=== PATIENT | male | born 1940 | race Caucasian/White ===

== ENCOUNTER → 2016-10-07 | Outpatient (CLI) | payer MEDICARE, BC ==
[~2016-10-07] MED LIST: AMLO10TA62 PO; ASPI-730 PO; CITA-50 PO; CYAN10009 PO; LORA10TA7 PO; MINO2.5T2 PO; NITR0.4T38 SL; PANT40TA32 PO; QUET50TA7 PO; SOTA80TA20 PO; [UNRECOGNIZED DRUG - OTHER] PO
--- NOTE | 2016-10-07 13:43 | DI ---
INDICATION: ITS.REASON: R05 COUGH PROCEDURE: CHEST 2-VIEWS UPRIGHT (PA \T\ LAT) Encounter: Initial Comparison: July 14, 2016 Findings: The lungs are stable in appearance without new focal airspace consolidation. Linear platelike atelectasis in the left lower lobe. There is no pleural effusion or pneumothorax. The heart size, pulmonary vascularity and mediastinal contours are unchanged. Prior CABG. Left pacemaker. Old right posterior rib fractures. Surgical clips in the neck. IMPRESSION: Stable appearance of the chest without acute cardiopulmonary disease. .
== END ==
LOC: IMA 13:01
PROVIDERS: ATTEND Nurse Practitioner Family
DX: R05 Cough (principal); Z95.0 Presence of cardiac pacemaker; Z95.1 Presence of aortocoronary bypass graft; Z98.890 Other specified postprocedural states

== ENCOUNTER → 2016-10-08 | Outpatient (CLI) | payer MEDICARE, BC ==
[~2016-10-08] VITALS: Ht 177.8 cm; Wt 109.0 kg
[~2016-10-08] MED LIST changes: +INHALER ASSIST DEVICE (Optichamber) MC ONE
== END ==
LOC: RC 12:42
PROVIDERS: ATTEND Nurse Practitioner Family
DX: J98.8 Other specified respiratory disorders (principal); Z87.891 Personal history of nicotine dependence
CPT/HCPCS: 94060; 94726; 94729; A9270

== ENCOUNTER 2016-11-04 08:36 | Outpatient (CLI) | payer MEDICARE, BC ==
[2016-11-04] VITALS (9 sets, daily range): BP systolic 138–154; BP diastolic 72–84; PULSE 62–78; RESP 16–20; TEMP 96.1–97.8; O2SAT 95–96; Ht 177.8 cm; Wt 106.8 kg
[~2016-11-04] VITALS: Ht 177.8 cm; Wt 106.8 kg
[~2016-11-04 08:36] MED LIST changes: -INHALER ASSIST DEVICE (Optichamber) MC ONE
--- NOTE | 2016-11-04 08:45 | NUR ---
ARRIVAL pt arrived to medical unit at 0845 as a direct admit. vitals and weight were taken and entered. pt on room air. is present. here for a myelogram. pt was assessed and made comfortable.
[2016-11-04] MEDS ORDERED: RANI150T12 PO (09:42)
[2016-11-04] MEDS ORDERED: ACET-2723 PO (09:46)
[2016-11-04] MEDS ORDERED: MINO10TA2 PO (09:46)
[2016-11-04 10:33] LABS: INR 1.07 (0.76-1.04); PROTHROMBIN TIME 11.7 SEC (9.31-12.49)
[2016-11-04] MEDS ORDERED: IOHEXOL 300 MG/ML 50ml INJECTION ONE (10:49)
--- NOTE | 2016-11-04 10:58 | NUR ---
LEFT FLOOR pt left floor for procedure.
--- NOTE | 2016-11-04 12:59 | DI ---
INDICATION: ITS.REASON: BACK PAIN, NEUROPATHY Ordering physician:Jolynn Benites MD Procedure:MYELOGRAM LUMBAR INJECTION FOR CT MYELOGRAM: The procedure including the benefits, risks, and alternatives were explained in detail to the patient. All of their questions were answered. He stated that he understood and wished to proceed. Informed consent was obtained. A preprocedural timeout was performed to confirm the correct patient and procedure. Using sterile technique, local Xylocaine anesthesia, and fluoroscopic guidance throughout, a 22 G spinal needle was advanced from a posterior approach into the subarachnoid space at the L3 level. A fluoroscopic image was then obtained and archived. Removal of the stylet showed clear colorless CSF. 15 cc of Omnipaque 300 was slowly instilled within the intrathecal space. The needle was then removed. Fluoroscopic images were then obtained. Following this, the patient was transferred to the CT department for their scan. Please see the separate CT report. Impression: Successful intrathecal contrast injection for a CT lumbar myelogram. Fluoroscopy dose: 29.98 mGy (Cumulative air kerma) Shon Buckley RPA/YUDI performed this under my personal supervision. .
--- NOTE | 2016-11-04 13:07 | DI ---
Indication: ITS.REASON: MYELOGRAM PROCEDURE: CT MYELOGRAM LUMBAR SPINE: Encounter: Initial Comparison: CT lumbar spine dated December 11, 2014 Technique: Axial CT imaging through the lumbar spine was performed after the administration of intrathecal contrast. The myelogram injection is described in a separate procedural report. Coronal and sagittal two-dimensional reformats. Automated Exposure Control and Iterative Reconstruction dose reducing techniques were utilized. Findings: Alignment of the lumbar spine is stable. No acute fracture identified. The conus medullaris terminates normally at L1-L2. Good opacification of the central spinal canal with myelographic contrast. Interval posterior decompression extending from L2 through L3. Interval resolution of the significant central canal stenosis previously seen at the L2-L3 level. Left iliac artery stent again noted. Paraspinal soft tissues show no acute findings. Segmental analysis: T11-T12: Normal T12-L1: Normal L1-L2: Normal L2-L3: Posterior decompression. Mild bilateral neural foraminal stenosis. L3-L4: Posterior decompression. Minimal central disk protrusion. Mild right and moderate left neural foraminal stenosis. This is similar to the prior study. L4-L5: Degenerative facet hypertrophy with ligamentum flavum thickening and a central disk protrusion contributes to severe central canal stenosis. This is worsened from the comparison. Moderate to severe bilateral neural foraminal stenosis appears similar. L5-S1: Degenerative facet disease without focal central protrusion or central canal stenosis. Moderate bony neural foraminal stenosis bilaterally. This is unchanged. Impression: Interval surgery with new severe central canal stenosis at L4-L5. .
--- NOTE | 2016-11-04 14:06 | NUR ---
DISMISSAL pt has been dismissed to home. all dismissal paperwork has been reviewed with the pt and a copy was sent home. pt on room air. all personal belongings were sent with pt. pt left with his .
== END 2016-11-04 14:06 | disposition home or self-care (01) ==
LOC: IMA.BED 08:36 → MED 08:37 → IMA.BED 14:06
PROVIDERS: ATTEND Radiology Diagnostic Radiology
DX: M48.06 Spinal stenosis, lumbar region (principal); M47.817 Spondylosis without myelopathy or radiculopathy, lumbosacral region; Z51.81 Encounter for therapeutic drug level monitoring; Z98.890 Other specified postprocedural states
CPT/HCPCS: 36415; 62304; 72132; 85049; 85610; Q9967

== ENCOUNTER 2017-01-31 14:17 | Observation (INO) ==
--- NOTE | 2017-01-31 14:35 | Emergency Department Report ---
General Adult HPI - General Chief complaint: Fall Stated complaint: HIGH TEMP (POST SURGERY) Time Seen by Provider: 01/31/17 14:32 Source: patient - History of Present Illness HPI narrative: 76 YO M brought to ED by family for evaluation of fall last night at home. Patient was getting out of bed and fell against the nightstand. Did not fall to the floor, strike head or have LOC. Patient is status post L4-L5 laminectomy with resection of synovial cyst on 01-29-17 and is to be admitted to IRU tomorrow per family. Home health nurse evaluated patient prior to arrival today and told family that patient had a fever of 101.4 and that his back was swollen. Home health nurse told family to come to the ED for evaluation. Fever was not treated at home. Patient arrived to the ED with normal temperature. Home health nurse took temperature with temporal thermometer. Patient admits mild lower back pain from surgery but denies increasing pain since fall. Denies chills, CP, SOA, ataxia or injuries from fall. states she does not feel she can care for patient at home due to fall risk and patient's size. She states she has a bad back herself and cannot help patient with ambulation. Onset (ago): hour(s) - Related Data Home Medications Medication Instructions Recorded Confirmed Quetiapine Fumarate [Seroquel] 50 mg PO HS #0 08/04/11 02/01/17 Pantoprazole Sodium 40 mg PO DAILY #0 11/27/11 02/01/17 Nitroglycerin 0.4 mg SL Q5M PRN #0 01/12/12 02/01/17 Amlodipine Besylate 10 mg PO DAILY #0 11/28/12 02/01/17 Citalopram Hydrobromide 20 mg PO HS #0 11/28/12 02/01/17 [Citalopram HBr] Cyanocobalamin (Vitamin B-12) 1,000 mcg PO DAILY #30 tab 07/14/16 02/01/17 [Vitamin B-12] Minoxidil 5 mg PO BID #0 11/04/16 02/01/17 raNITIdine HCl [Zantac] 150 mg PO HS #0 tab 11/04/16 02/01/17 Albuterol Inhaler [Ventolin Hfa] 2 puff ORAL INH BID 01/02/17 02/01/17 metoprolol tartrate 25 mg tablet 25 mg PO BID tab 01/11/17 02/01/17 Cyclobenzaprine [Flexeril] 10 mg PO Q8H PRN 01/31/17 02/01/17 Docusate Sodium [Colace] 1 cap PO DAILY PRN 01/31/17 02/01/17 Hydromorphone [Dilaudid] 2 mg PO Q6H PRN 01/31/17 02/01/17 Lactobacillus Acidophilus 2 cap PO DAILY 01/31/17 02/01/17 [Probiotic] Previous Rx's Medication Instructions Recorded Sotalol HCl [Betapace] 40 mg PO BID 30 Days 05/21/16 Bisacodyl EC Tab [Dulcolax] 10 mg PO BID tablet 02/01/17 PEG 3350 17gm PACKET [Miralax] 17 gm PO BID packet 02/01/17 Allergies Allergy/AdvReac Type Severity Reaction Status Date / Time cephalexin Allergy Unknown C DIFF Verified 01/31/17 14:34 labetalol Allergy Unknown Verified 01/31/17 14:34 nitrofurantoin AdvReac Intermediate NAUSEA Verified 01/31/17 14:34 aliskiren [From Tekturna] AdvReac Mild Cramping Verified 01/31/17 14:34 of the Muscles amlodipine [From Lotrel] AdvReac Mild achy Verified 01/31/17 14:34 joints, muscle weakness benazepril [From Lotrel] AdvReac Mild achy Verified 01/31/17 14:34 joints, muscle weakness clonidine AdvReac Mild MUSCLE PAIN Verified 01/31/17 14:34 felodipine AdvReac Mild MUSCLE PAIN Verified 01/31/17 14:34 hydrochlorothiazide AdvReac Mild MUSCLE PAIN Verified 01/31/17 14:34 lisinopril AdvReac Mild ACHY Verified 01/31/17 14:34 JOINTS, MUSCLE WEAKNESS tramadol AdvReac Mild not Verified 01/31/17 14:34 effective valsartan AdvReac Mild MUSCLE PAIN Verified 01/31/17 14:34 hydrocodone AdvReac Unknown NOT Verified 01/31/17 14:34 EFFECTIVE indomethacin AdvReac Unknown "STOMACH Verified 01/31/17 14:34 PROBLEMS" morphine AdvReac Unknown BELLIGERENT Verified 01/31/17 14:34 simvastatin AdvReac Unknown MUSCLE Verified 01/31/17 14:34 CRAMPS diphenhydramine HCl Allergy Mild "HAS Uncoded 01/02/17 00:16 OPPOSITE EFFECT" aliskiren hemifumarate AdvReac Mild MUSCLE PAIN Uncoded 01/02/17 00:16 benazepril HCl AdvReac Mild MUSCLE PAIN Uncoded 01/02/17 00:16 diltiazem HCl AdvReac Mild MUSCLE PAIN Uncoded 01/02/17 00:09 olmesartan medoxomil AdvReac Mild MUSCLE PAIN Uncoded 01/02/17 00:16 varenicline tartrate AdvReac Unknown "WENT Uncoded 01/02/17 00:16 CRAZY" Review of Systems All systems: reviewed and negative except as stated Musculoskeletal: Reports: as per HPI, back pain PFSH Patient Stated Medical History Transient Ischemic Attacks ( Yes TIA) Angina Yes Coronary Artery Disease Yes Hypertension Yes Myocardial Infarction Yes Gastroesophageal Reflux Yes Disease Clinic Medical History (Last Updated 02/05/17 @ 17:05 by ARNAUD Cortes) Heart attack (Acute Medical) Coronary artery disease (Chronic Medical) HTN (hypertension) (Chronic Medical) Peripheral arterial disease (Chronic Medical) Surgical History: stents. cardiac bypass,. cardiac cath,. carotid endarterectomy,. other, pacemaker,. vascular bypass. L2-L3 microdisectomy Family History: Family History (Last Reviewed 01/11/17 @ 10:38 by SHIVANI Aguilar) Mother Arthritis Father HTN (hypertension) Heart attack - Social History Smoking status: Former smoker Household members: spouse Physical Exam - Limitations Limitations: no limitations - General General appearance: alert, in no apparent distress - Normal Exams: Head:: Normocephalic without trauma Eyes:: Pupils are PERRLA w/ EOMI, No scleral icterus, irritation ENMT:: No facial trauma, nasal exudates, pharyngeal erythema Neck:: Full range of motion, without adenopathy Chest/Respirations:: Clear all carlson, with good airflow, and symmetry bilaterally Cardiovascular:: Regular rate and rhythm Abdomen:: Bowel sounds positive, soft, non-tender, non-distended Integumentary:: No rashes Neurological:: Patient is alert, and oriented, cranial nerves, motor/sensory/ cerebellar, exams w/o gross deficits, to observation Psychiatric:: Patient exhibits, appropriate attention, emotion and affect - Back Exam Back exam: Present: other (see below) - Skin Skin exam: Present: warm, dry - Other Other exam information: Lumbar spine incision has semi-transparent dressing visualization of well adhered incision, with trace blood on dressing. Mild edema around suture line which is consistent with status post laminectomy. Course - Consultations Consultation #1: I discussed patient HPI, PMH, labs, VS, exam findings with Dr. Torres. She would like to see if patient could be direct admitted to IRU. Clau Schmidt APRN did check with IRU and they are unable to admit since patient has not yet been screened for IRU. Dr. Torres will admit observation. Vital Signs Temperature 98.6 F 01/31/17 14:20 Pulse Rate 82 01/31/17 14:20 Respiratory Rate 20 01/31/17 14:20 Blood Pressure 152/68 H 01/31/17 14:20 Pulse Oximetry 93 01/31/17 14:20 Temperature 98.3 F 02/01/17 15:28 Pulse Rate 75 02/01/17 15:28 Respiratory Rate 16 02/01/17 15:28 Blood Pressure 107/61 02/01/17 15:28 Pulse Oximetry 96 02/01/17 15:28 Medical Decision Making - [facility] Narrative Medical decision making narrative: WBC 13.6 with 68% neut, no bands consistent with status post laminectomy. Other labs noncontributory. Patient will be admitted observation status due to fall and will be screened for IRU tomorrow. - Differential Diagnosis Fall, Sepsis, SIRS, Fracture, Dehydration, Presyncope - Medical Records Medical records reviewed: Yes: I reviewed the patient's medical records. - Lab Data Result diagrams: 02/01/17 05:54 02/01/17 05:54 Lab Results 01/31/17 01/31/17 01/31/17 Range/Units 15:06 15:08 15:08 WBC 13.6 H (4.5-11.0) T/MM3 RBC 4.89 (4.50-5.90) M/MM3 Hgb 14.1 (13.5-17.5) GM/DL Hct 42.3 (41-53) % MCV 86.5 (80-100) UM3 MCH 28.8 (26-34) UUG MCHC 33.3 (31-37) GM/DL RDW Std Deviation 44.1 (36.9-50.2) FL Plt Count 252 (130-400) T/MM3 MPV 9.9 (9.4-12.4) UM3 Immature Gran % (Auto) 0.3 (0.0-0.5) % Neut % (Auto) 68.3 H (33-66) % Lymph % (Auto) 17.1 L (23-45) % [place] % (Auto) 13.7 H (0-9.0) % Eos % (Auto) 0.3 (0-4) % Baso % (Auto) 0.3 (0-2) % Neut # 9.3 H (1.8-7.7) T/MM3 Lymph # 2.3 (1-4.8) T/MM3 [place] # 1.9 H (0-0.8) T/MM3 Eos # 0.0 (0-0.5) T/MM3 Baso # 0.0 (0-0.2) T/MM3 Abs Immat Gran (auto) 0.04 H (0.00-0.03) T/MM3 Turbidity < 20 (0-20) Sodium 138 (134-144) MEQ/L Potassium 3.9 (3.6-5) MEQ/L Chloride 101 (98-107) MEQ/L Carbon Dioxide 30 (22-30) MEQ/L Anion Gap 7 (5-15) MEQ/L BUN 17.0 (9-20) MG/DL Creatinine 1.3 (0.8-1.5) MG/DL GFR Calculation 54 BUN/Creatinine Ratio 13 (6-26) RATIO Glucose 97 (75-110) MG/DL Calculated Osmolality 268 (261-280) MOSM/KG Calcium 9.2 (8.4-10.2) MG/DL Total Bilirubin 1.10 (0.20-1.30) MG/DL Icterus Index < 2 (0-7) AST 25 (17-59) U/L ALT 28 (21-72) U/L Alkaline Phosphatase 62 (38-126) U/L Total Protein 6.8 (6.3-8.2) G/DL Albumin 3.8 (3.5-5.0) G/DL Globulin 3.0 (2.4-3.6) G/DL Albumin/Globulin Ratio 1.3 (1.1-2.2) RATIO Specimen Hemolysis < 15 (0-25) Ur Collection Type Urine, clean catch Urine Color Yellow (YELLOW) Urine Clarity Clear Urine pH 5.5 (5.0-8.0) Ur Specific [place] 1.015 (1.015-1.025) Urine Protein Negative (NEGATIVE) Urine Glucose (UA) Negative (NEGATIVE) Urine Ketones Negative (NEGATIVE) Urine Occult Blood 1+ A (NEGATIVE) Urine Nitrate Negative (NEGATIVE) Urine Bilirubin Negative (NEGATIVE) Urine Urobilinogen 0.2 (NORMAL) EU/DL Ur Leukocyte Esterase Negative (NEGATIVE) Urine RBC 1-3 (0-3) /HPF Urine WBC 0-1 (0-5) /HPF Urine Bacteria Trace H (NEGATIVE) Ur Culture Indicated? Cult not indicated Disposition Clinical Impression: Fall, Status post laminectomy Disposition: 02 To [facility] Condition: Stable - [facility]
--- NOTE | 2017-01-31 16:36 | History & Physical Report ---
<Clau Schmidt V - Last Filed: 01/31/17 16:32> History of Present Illness Date: 01/31/17 Chief complaint: Fall at home Post-op HPI: Patient is pleasant 76 old gentleman who was brought into the emergency room today by his family for acute evaluation. He underwent a L4-L5 laminectomy with synovial cyst resection on 01/29/17 at [facility] under the care of Dr. Keller. Surgery went well without reported complications. He was discharged home yesterday 01/30/17, however, has had difficulty with ambulation and pain control. During the night. Patient fell and his is unable to safely take care of him. Home health did visit patient today and reported he had a fever of 101, however, on arrival to the emergency room. He was found to be afebrile at 98.6. Laboratory studies were obtained. White count was found be mildly elevated at 13.6, hemoglobin 14.1, hematocrit 42.3. Sodium 138, potassium 3.9, BUN 17, creatinine 1.3. Urinalysis is unremarkable. Patient was afebrile 98.6, pulse 82, respiration rate 20, blood pressure 152/68, room air saturations 93%. Given patient's recent surgery as well as pain control and follow home. The hospitalist services were contacted and accepted patient for outpatient admission for further evaluation and treatment. Patient is initially well in the emergency room. He is alert and oriented and accompanied by his . She does indicate that they had been instructed that inpatient rehabilitation was an option, however, no screening or acute evaluation was performed. He reports currently lumbar back pain is mild to moderate, however, he is currently due for Dilaudid. We discussed past medical history and comorbidities. We did discuss advanced directives. Patient does indicate his wishes do not resuscitate. Review of Systems All systems: reviewed and no additional remarkable complaints except as stated - Constitutional Constitutional: Present: weakness (generalized) - Musculoskeletal Musculoskeletal: Present: as per HPI, back pain (lumbar back) Musculoskeletal Comments: Chronic right knee pain PFSH Patient Stated Medical History Coronary artery disease with history of DE Hypertension GERD Peripheral artery disease History of atrial fibrillation. History of TIA Surgical History: L4-L5 laminectomy with synovial cyst removal-01/29/17- (Dr. Keller). CABG-2011 with stent placement (Dr Sharpe). Pacemaker- 2011. Carotid endarterectomy-2016- (Dr Mccoy). Bilateral lower extremity stenting ( lower ext and Iliac) ballooning-2010,2012- (Dr Gabriel). Colonoscopy-2013. EGD -2011. Cardiac catheter-2011. Carpal tunnel repair-Dr. Cai. L2-L3 microdisectomy Family History: Family History Father-heart disease Mother-severe rheumatoid arthritis - Social History Smoking status: Former smoker Substance use type: does not use Alcohol intake frequency: does not drink Housing: house Household members: spouse Current occupational status: retired Does patient use chewing tobacco?: No Current residence: Apartment/Private Home Social history: Primary care provider. Dr. Duff Spine surgeon-Dr. Keller Electron Microprobe Operator Dr. Gabriel Medications Home Medications Medication Instructions Recorded Confirmed Type Quetiapine Fumarate [Seroquel] 50 mg PO HS #0 08/04/11 01/31/17 History Pantoprazole Sodium 40 mg PO DAILY #0 11/27/11 01/31/17 History Nitroglycerin 0.4 mg SL Q5M PRN #0 01/12/12 01/31/17 History Amlodipine Besylate 10 mg PO DAILY #0 11/28/12 01/31/17 History Citalopram Hydrobromide 20 mg PO HS #0 11/28/12 01/31/17 History [Citalopram HBr] Aspirin 325 mg PO DAILY #0 01/03/13 01/31/17 History Cyanocobalamin (Vitamin B-12) 1,000 mcg PO DAILY #30 tab 07/14/16 01/31/17 History [Vitamin B-12] Minoxidil 5 mg PO BID #0 11/04/16 01/31/17 History raNITIdine HCl [Zantac] 150 mg PO HS #0 tab 11/04/16 01/31/17 History Albuterol Inhaler [Ventolin Hfa] 2 puff ORAL INH BID 01/02/17 01/31/17 History metoprolol tartrate 25 mg tablet 25 mg PO BID tab 01/11/17 01/31/17 History Cyclobenzaprine [Flexeril] 10 mg PO Q8H PRN 01/31/17 01/31/17 History Docusate Sodium [Colace] 1 cap PO DAILY PRN 01/31/17 01/31/17 History Hydromorphone [Dilaudid] 2 mg PO Q6H PRN 01/31/17 01/31/17 History Lactobacillus Acidophilus 2 cap PO DAILY 01/31/17 01/31/17 History [Probiotic] Allergies Allergy/AdvReac Type Severity Reaction Status Date / Time cephalexin Allergy Unknown C DIFF Verified 01/31/17 14:34 labetalol Allergy Unknown Verified 01/31/17 14:34 nitrofurantoin AdvReac Intermediate NAUSEA Verified 01/31/17 14:34 aliskiren [From Tekturna] AdvReac Mild Cramping Verified 01/31/17 14:34 of the Muscles amlodipine [From Lotrel] AdvReac Mild achy Verified 01/31/17 14:34 joints, muscle weakness benazepril [From Lotrel] AdvReac Mild achy Verified 01/31/17 14:34 joints, muscle weakness clonidine AdvReac Mild MUSCLE PAIN Verified 01/31/17 14:34 felodipine AdvReac Mild MUSCLE PAIN Verified 01/31/17 14:34 hydrochlorothiazide AdvReac Mild MUSCLE PAIN Verified 01/31/17 14:34 lisinopril AdvReac Mild ACHY Verified 01/31/17 14:34 JOINTS, MUSCLE WEAKNESS tramadol AdvReac Mild not Verified 01/31/17 14:34 effective valsartan AdvReac Mild MUSCLE PAIN Verified 01/31/17 14:34 hydrocodone AdvReac Unknown NOT Verified 01/31/17 14:34 EFFECTIVE indomethacin AdvReac Unknown "STOMACH Verified 01/31/17 14:34 PROBLEMS" morphine AdvReac Unknown BELLIGERENT Verified 01/31/17 14:34 simvastatin AdvReac Unknown MUSCLE Verified 01/31/17 14:34 CRAMPS diphenhydramine HCl Allergy Mild "HAS Uncoded 01/02/17 00:16 OPPOSITE EFFECT" aliskiren hemifumarate AdvReac Mild MUSCLE PAIN Uncoded 01/02/17 00:16 benazepril HCl AdvReac Mild MUSCLE PAIN Uncoded 01/02/17 00:16 diltiazem HCl AdvReac Mild MUSCLE PAIN Uncoded 01/02/17 00:09 olmesartan medoxomil AdvReac Mild MUSCLE PAIN Uncoded 01/02/17 00:16 varenicline tartrate AdvReac Unknown "WENT Uncoded 01/02/17 00:16 CRAZY" Exam Vital Signs: Temperature 98.6 F 01/31/17 14:20 Pulse Rate 82 01/31/17 14:20 Respiratory Rate 20 01/31/17 14:20 Blood Pressure 152/68 H 01/31/17 14:20 Pulse Oximetry 93 01/31/17 14:20 Oxygen Delivery Method Room Air Height: 1.83 m Weight: 106.141 kg - Constitutional Present: no acute distress, well nourished, well developed - Routine HEENT Exam Head: Present: normocephalic, atraumatic Eye: Present: EOMI, PERRL ENT: Present: mucous membranes moist, dentition normal - Routine Neck Exam Present: full ROM - Routine Respiratory Exam Present: CTA bilaterally. Absent: wheezes - Routine Cardiovascular Exam Present: RRR, S1, S2. Absent: murmur - Routine Abdominal Exam Present: soft, normoactive bowel sounds, non distended. Absent: tenderness - Routine Extremities Exam Present: full ROM, normal capillary refill - Routine Back/Spine/Pelvis Exam Back/Spine: Present: paraspinal tenderness (Post-op) - Routine Skin Exam Present: intact, dry, warm - Routine Neurological Exam Present: alert, oriented X3, CN II-XII intact - Routine Psychiatric Exam Present: normal affect, normal thought process Results - Labs CBC & Chem 7: 01/31/17 15:08 01/31/17 15:08 Assessment and Plan (1) S/P laminectomy Current visit: Yes Status: Acute 01/29/17- L4-L5 laminectomy with synovial cyst resection (Dr. Keller) (2) Fall at home Current visit: Yes Status: Acute (3) Back pain Current visit: Yes Status: Acute (4) A-fib Current visit: Yes Status: Chronic (5) OA (osteoarthritis) of knee Current visit: Yes Status: Chronic (6) Coronary artery disease Current visit: No Status: Chronic (7) HTN (hypertension) Current visit: No Status: Chronic (8) Peripheral arterial disease Current visit: No Status: Chronic (9) History of TIA (transient ischemic attack) Current visit: Yes Status: Resolved (10) GERD (gastroesophageal reflux disease) Current visit: Yes Status: Chronic Assessment and Plan: 01/31/17 Will admit patient for outpatient observation under the care of the hospitalist services, (Dr. Torres) for status post laminectomy with pain, and fall at home. Will continue with patient's current pain regimen including Flexeril 10 milligrams every 8 hours as well as Dilaudid 2 milligrams every 6 hours as needed for pain control. Will monitor vital signs for any further evidence of fever. Postoperative incision has no evidence of erythema or drainage. Place consults for PT and OT to evaluate patient tomorrow morning. Will also place IRU screen for potential ongoing rehabilitation and strengthening. Given his postoperative state, accompanied with follow-up home and increased pain. SCDs to bilateral lower extremities for DVT prophylaxis Continue with Colace and will also add MiraLAX since patient has not had a bowel movement postoperatively. Patient does request to be a do not resuscitate and this orders written Will recheck CBC and BMP tomorrow to monitor blood counts, renal function and electrolytes. Will discuss further orders and plan of care with attending, Dr. Torres. At time of discharge medical care will return to primary care provider. Dr. Duff Hospital Course Summary Disclaimer: The visit summary below is not to be considered part of the above Progress Note. Hospital Course: 01/31/17- Admission (Brayan) Will admit patient for outpatient observation under the care of the hospitalist services, (Dr. Torres) for status post laminectomy with pain, and fall at home. Will continue with patient's current pain regimen including Flexeril 10 milligrams every 8 hours as well as Dilaudid 2 milligrams every 6 hours as needed for pain control. Will monitor vital signs for any further evidence of fever. Postoperative incision has no evidence of erythema or drainage. Place consults for PT and OT to evaluate patient tomorrow morning. Will also place IRU screen for potential ongoing rehabilitation and strengthening. Given his postoperative state, accompanied with follow-up home and increased pain. SCDs to bilateral lower extremities for DVT prophylaxis Continue with Colace and will also add MiraLAX since patient has not had a bowel movement postoperatively. Patient does request to be a do not resuscitate and this orders written Will recheck CBC and BMP tomorrow to monitor blood counts, renal function and electrolytes. Will discuss further orders and plan of care with attending, Dr. Torres. At time of discharge medical care will return to primary care provider. Dr. Duff 01/31/17 16:55 <Sunshine Torres - Last Filed: 01/31/17 18:10> History of Present Illness Date: 01/31/17 [facility] Medical History (Last Updated 01/31/17 @ 16:56 by Clau Schmidt APRN) Heart attack (Acute Medical) Coronary artery disease (Chronic Medical) HTN (hypertension) (Chronic Medical) Peripheral arterial disease (Chronic Medical) Family History: Family History (Last Reviewed 01/11/17 @ 10:38 by Nena Watts [facility]) Mother Arthritis Father HTN (hypertension) Heart attack Exam Vital Signs: Temperature 98.6 F 01/31/17 14:20 Pulse Rate 82 01/31/17 17:49 Respiratory Rate 20 01/31/17 17:49 Blood Pressure 152/68 H 01/31/17 14:20 Pulse Oximetry 93 01/31/17 17:49 Oxygen Delivery Method Room Air Height: 1.83 m Weight: 106.141 kg Results - Labs CBC & Chem 7: 01/31/17 15:08 01/31/17 15:08 Assessment and Plan (1) Coronary artery disease Current visit: No Status: Chronic (2) HTN (hypertension) Current visit: No Status: Chronic (3) Peripheral arterial disease Current visit: No Status: Chronic (4) S/P laminectomy Current visit: Yes Status: Acute (5) Fall at home Current visit: Yes Status: Acute (6) Back pain Current visit: Yes Status: Acute (7) A-fib Current visit: Yes Status: Chronic (8) OA (osteoarthritis) of knee Current visit: Yes Status: Chronic (9) History of TIA (transient ischemic attack) Current visit: Yes Status: Resolved (10) GERD (gastroesophageal reflux disease) Current visit: Yes Status: Chronic Assessment and Plan: 01/31/2017-I reviewed this chart, the patient history, and the APPLICATION DEVELOPMENT INTERN's/PA's documented findings as above. We discussed and formulated the assessment and plan as above with the additions below. I've seen and examined the patient independently.-Dr. oTrres Patient was seen this evening accompanied by his and 2 of his daughters. The patient was discharged from the hospital yesterday after laminectomy and resection of a synovial cyst which was causing nerve impingement. The patient had a fall yesterday. Today his home health nurse evaluated him and recommended he come to the hospital for possible rehabilitation. Questionable fever at home. He occasionally has sweats and fevers but no chills. Currently he feels fine. He denies any symptoms of infection such as upper respiratory symptoms, increased cough, diarrhea, or dysuria. He has not had a bowel movement since before surgery. On exam he is alert and oriented 3 and in no acute distress. HEENT reveals sclerae to be anicteric and oropharynx is moist. Chest is clear to auscultation. Cardiovascular reveals a regular rate and rhythm. Abdomen is soft and nontender. Extremities are free of edema. Motor strength is equal in the upper and lower extremities. Lab work was reviewed. We'll start cardiac diet. Hold on aspirin until the which will be 7 days after his laminectomy. Agree with PT, OT and IRU screen. Hospital Course Summary Disclaimer: The visit summary below is not to be considered part of the above Progress Note.
[2017-01-31] MEDS ORDERED: POM DOCUSATE SODIUM 100 MG CAPSULE PO PRN (16:48)
[2017-01-31] MEDS ORDERED: CYCLOBENZAPRINE 10 MG PO PRN (16:48)
[2017-01-31] MEDS ORDERED: FALL RISK - PHARMACY CONSULT MC PRN (18:11)
[2017-01-31] MEDS ORDERED: SOTALOL 80 MG TABLET PO SCH (21:00)
[2017-01-31] MEDS ORDERED: MINOXIDIL 2.5 MG TABLET PO SCH (21:00)
[2017-01-31] MEDS: POLYETHYL GLYCOL 3350 17gm PACKET PO SCH (21:38)
[2017-01-31] MEDS: BISACODYL PO SCH (21:38)
[2017-01-31] MEDS: HYDROMORPHONE 2 MG TABLET PO PRN (21:51)
[2017-01-31] MEDS ORDERED: POM CITALOPRAM 20 MG TABLET PO SCH (22:00)
[2017-01-31] MEDS ORDERED: QUETIAPINE 50 MG PO SCH (22:00)
[2017-01-31] MEDS ORDERED: POM RANITIDINE 150 MG TABLET PO SCH (22:00)
[2017-02-01] MEDS: HYDROMORPHONE 2 MG TABLET PO PRN (06:00)
[2017-02-01] MEDS ORDERED: SOTALOL 80 MG PO SCH (06:30)
[2017-02-01] MEDS ORDERED: POM METOPROLOL TARTRATE 25mg TABLET PO SCH (08:00)
[2017-02-01] MEDS: BISACODYL PO SCH (08:53)
[2017-02-01] MEDS ORDERED: POM PANTOPRAZOLE 40 MG TABLET PO SCH (09:00)
[2017-02-01] MEDS ORDERED: ASPIRIN 325 MG TABLET PO SCH (09:00)
[2017-02-01] MEDS ORDERED: VITAMIN B12 1000 MCG PO SCH (09:00)
[2017-02-01] MEDS ORDERED: MINOXIDIL 10 MG PO SCH (09:00)
[2017-02-01] MEDS ORDERED: LACTOBACILLUS (15B cfu) CAPSULE PO SCH (09:00)
[2017-02-01] MEDS ORDERED: POM AMLODIPINE 10 MG TABLET PO SCH (09:00)
[2017-02-01] MEDS ORDERED: ALBUTEROL 2.5mg/3ml (0.083%) NEB AEROSOL SCH (09:00)
[2017-02-01] MEDS: POLYETHYL GLYCOL 3350 17gm PACKET PO SCH (09:13)
--- NOTE | 2017-02-01 10:39 | XRay Report ---
EXAM: XR chest 1V 1017 hours COMPARISON: None available. HISTORY: hypoxia . FINDINGS:Sternotomy wires are in place. Pacemaker and pacer wires are in place and appear appropriate. The heart is enlarged. The pulmonary vascularity appears unremarkable. The lungs are clear. There is no evidence for pleural effusion. There is no evidence for a pneumothorax. There is mild AC joint arthrosis. IMPRESSION: 1. Cardiomegaly. 2. No acute process identified. LOCATION OF DICTATION: [facility] .
--- NOTE | 2017-02-01 12:47 | Discharge Instructions ---
<Clau Schmidt V - Last Filed: 02/01/17 12:43> Discharge Plan - Med Rec/Dispo Levi Instructions: Fall Prevention (DC) Prescriptions: New Bisacodyl EC Tab [Dulcolax] 10 mg PO BID tablet PEG 3350 17gm PACKET [Miralax] 17 gm PO BID packet Continue Citalopram Hydrobromide [Citalopram HBr] 20 mg PO HS #0 raNITIdine HCl [Zantac] 150 mg PO HS #0 tab Minoxidil 5 mg PO BID #0 Albuterol Inhaler [Ventolin Hfa] 2 puff ORAL INH BID Docusate Sodium [Colace] 1 cap PO DAILY PRN PRN Reason: Constipation /Stool Softening Lactobacillus Acidophilus [Probiotic] 2 cap PO DAILY Hydromorphone [Dilaudid] 2 mg PO Q6H PRN PRN Reason: Pain Quetiapine Fumarate [Seroquel] 50 mg PO HS #0 Pantoprazole Sodium 40 mg PO DAILY #0 Nitroglycerin 0.4 mg SL Q5M PRN #0 PRN Reason: Chest Pain Amlodipine Besylate 10 mg PO DAILY #0 Sotalol HCl [Betapace] 40 mg PO BID 30 Days Cyanocobalamin (Vitamin B-12) [Vitamin B-12] 1,000 mcg PO DAILY #30 tab Cyclobenzaprine [Flexeril] 10 mg PO Q8H PRN PRN Reason: Muscle Pain metoprolol tartrate 25 mg tablet 25 mg PO BID tab Discontinued Aspirin 325 mg PO DAILY #0 Discharge Instructions/Outpatient Orders: Final Provider Discharge Instructions Location: Determined By Patient - Disposition 62 To [facility] <Sunshine Torres - Last Filed: 02/01/17 14:15> Discharge Plan - Med Rec/Dispo
--- NOTE | 2017-02-01 13:27 | Discharge Summary ---
Discharge Information Date of admission: 01/31/17 16:38 <Sunshine Torres - 02/01/17 14:18> 01/31/17 16:38 <Clau Schmidt V - 02/01/17 13:28> Anticipated date of discharge: 02/01/17 <Clau Schmidt V - 02/01/17 13:28> Attending Physician: Sunshine Torres MD <Sunshine Torres - 02/01/17 14:18> Sunshine Torres MD <Clau Schmidt V - 02/01/17 13:28> Primary care physician: Kim Duff MD <Sunshine Torres - 02/01/17 14:18> Kim Duff MD <Clau Schmidt V - 02/01/17 13:28> Consults: 02/01/17 08:00 IRU Screening [Inpatient Rehab Screening] [CONS] Routine <Sunshine Torres - 02/01/17 14:18> 02/01/17 08:00 IRU Screening [Inpatient Rehab Screening] [CONS] Routine <Clau Schmidt V - 02/01/17 13:28> - Discharge Diagnosis (1) Coronary artery disease Status: Chronic (2) HTN (hypertension) Status: Chronic (3) Peripheral arterial disease Status: Chronic (4) S/P laminectomy Status: Acute (5) Fall at home Status: Acute (6) Back pain Status: Acute (7) A-fib Status: Chronic (8) OA (osteoarthritis) of knee Status: Chronic (9) History of TIA (transient ischemic attack) Status: Resolved (10) GERD (gastroesophageal reflux disease) Status: Chronic <Sunshine Torres - 02/01/17 14:18> (1) S/P laminectomy Status: Acute (2) Fall at home Status: Acute (3) Back pain Status: Acute (4) A-fib Status: Chronic (5) OA (osteoarthritis) of knee Status: Chronic (6) Coronary artery disease Status: Chronic (7) HTN (hypertension) Status: Chronic (8) Peripheral arterial disease Status: Chronic (9) History of TIA (transient ischemic attack) Status: Resolved (10) GERD (gastroesophageal reflux disease) Status: Chronic <Clau Schmidt 02/01/17 13:19> - Procedures Procedures: None <Clau Schmidt V - 02/01/17 13:28> - Laboratory Labs: 02/01/17 05:54 02/01/17 05:54 <Sunshine Torres - 02/01/17 14:18> 02/01/17 05:54 02/01/17 05:54 <Clau Schmidt V - 02/01/17 13:28> - Microbiology None <Clau Schmidt V 02/01/17 13:28> - Radiology Radiology: 02/01/17-chest x-ray no acute cardiopulmonary findings. <Clau Schmidt V 02/01/17 13:28> - Pathology None <Clau Schmidt V 02/01/17 13:28> History of Present Illness HPI: Patient is pleasant 76 old gentleman who was brought into the emergency room today by his family for acute evaluation. He underwent a L4-L5 laminectomy with synovial cyst resection on 01/29/17 at [facility] under the care of Dr. Kleler. Surgery went well without reported complications. He was discharged home yesterday 01/30/17, however, has had difficulty with ambulation and pain control. During the night. Patient fell and his is unable to safely take care of him. Home health did visit patient today and reported he had a fever of 101, however, on arrival to the emergency room. He was found to be afebrile at 98.6. Laboratory studies were obtained. White count was found be mildly elevated at 13.6, hemoglobin 14.1, hematocrit 42.3. Sodium 138, potassium 3.9, BUN 17, creatinine 1.3. Urinalysis is unremarkable. Patient was afebrile 98.6, pulse 82, respiration rate 20, blood pressure 152/68, room air saturations 93%. Given patient's recent surgery as well as pain control and follow home. The hospitalist services were contacted and accepted patient for outpatient admission for further evaluation and treatment. Patient is initially well in the emergency room. He is alert and oriented and accompanied by his . She does indicate that they had been instructed that inpatient rehabilitation was an option, however, no screening or acute evaluation was performed. He reports currently lumbar back pain is mild to moderate, however, he is currently due for Dilaudid. We discussed past medical history and comorbidities. We did discuss advanced directives. Patient does indicate his wishes do not resuscitate. <Clau Schmidt V - 02/01/17 13:28> Hospital Course This is a general summary of the patient's hospital course. For more details refer to the complete medical record. <Sunshine Torres - 02/01/17 14:18> This is a general summary of the patient's hospital course. For more details refer to the complete medical record. <Clau Schmidt V - 02/01/17 13:28> Hospital course: 02/01/2017-I reviewed this chart, the patient history, and the TANGLED YARN SPOOL STRAIGHTENER's/PA's documented findings as above. We discussed and formulated the assessment and plan as above with the additions below. I've seen and examined the patient independently of my nurse practitioner. The patient states he's feeling very well. He was seen in his room at lunchtime and was eating well. He was on room air and oxygen saturation was 88%. He denied feeling short of breath. He denied any chest pain. He denied any lightheadedness. He states he was feeling a little bit stronger when he was up walking with assistance. He states he has very little low back pain at rest. On exam he is alert and oriented 3. Chest is clear to auscultation. Cardiac vascular reveals a regular rate and rhythm. Abdomen is soft and nontender. Extremity are free of edema. Chest x-ray shows cardiomegaly but no acute abnormalities The patient appears to be stable for transfer to inpatient rehabilitation for strengthening. Continue current medications. Recommend incentive spirometer for hypoxia which may be related to atelectasis. O2 as needed. <Sunshine Torres - 02/01/17 14:18> 01/31/17- Admission (Brayan) Will admit patient for outpatient observation under the care of the hospitalist services, (Dr. Torres) for status post laminectomy with pain, and fall at home. Will continue with patient's current pain regimen including Flexeril 10 milligrams every 8 hours as well as Dilaudid 2 milligrams every 6 hours as needed for pain control. Will monitor vital signs for any further evidence of fever. Postoperative incision has no evidence of erythema or drainage. Place consults for PT and OT to evaluate patient tomorrow morning. Will also place IRU screen for potential ongoing rehabilitation and strengthening. Given his postoperative state, accompanied with follow-up home and increased pain. SCDs to bilateral lower extremities for DVT prophylaxis Continue with Colace and will also add MiraLAX since patient has not had a bowel movement postoperatively. Patient does request to be a do not resuscitate and this orders written Will recheck CBC and BMP tomorrow to monitor blood counts, renal function and electrolytes. Will discuss further orders and plan of care with attending, Dr. Torres. 02/01/17- Discharge Overnight Caesar did have some hypoxia requiring 1 liter of oxygen to maintain saturations. He was screened and accepted today to IRU. The hospitalist services will continue to follow patient and medical manges existing commodities during his stay in the inpatient rehabilitation unit. Aspirin is placed on hold until recommended date post-op. All other medications will remain the same. <Clau Schmidt V - 02/01/17 13:28> DVT Prophylaxis: SCD's <Clau Schmidt V - 02/01/17 13:28> GI Prophylaxis: Protonix <Clau Schmidt V - 02/01/17 13:28> Discharge Plan - Med Rec/Dispo [place] Instructions: Fall Prevention (DC) <Sunshine Torres - 02/01/17 14: 18> Prescriptions: New Bisacodyl EC Tab [Dulcolax] 10 mg PO BID tablet PEG 3350 17gm PACKET [Miralax] 17 gm PO BID packet Continue Citalopram Hydrobromide [Citalopram HBr] 20 mg PO HS #0 raNITIdine HCl [Zantac] 150 mg PO HS #0 tab Minoxidil 5 mg PO BID #0 Albuterol Inhaler [Ventolin Hfa] 2 puff ORAL INH BID Docusate Sodium [Colace] 1 cap PO DAILY PRN PRN Reason: Constipation /Stool Softening Lactobacillus Acidophilus [Probiotic] 2 cap PO DAILY Hydromorphone [Dilaudid] 2 mg PO Q6H PRN PRN Reason: Pain Quetiapine Fumarate [Seroquel] 50 mg PO HS #0 Pantoprazole Sodium 40 mg PO DAILY #0 Nitroglycerin 0.4 mg SL Q5M PRN #0 PRN Reason: Chest Pain Amlodipine Besylate 10 mg PO DAILY #0 Sotalol HCl [Betapace] 40 mg PO BID 30 Days Cyanocobalamin (Vitamin B-12) [Vitamin B-12] 1,000 mcg PO DAILY #30 tab Cyclobenzaprine [Flexeril] 10 mg PO Q8H PRN PRN Reason: Muscle Pain metoprolol tartrate 25 mg tablet 25 mg PO BID tab Discontinued Aspirin 325 mg PO DAILY #0 <Sunshine Torres - 02/01/17 14:18> Discharge Instructions/Outpatient Orders: Final Provider Discharge Instructions Location: Determined By Patient <Sunshine Torres - 02/01/17 14:18> Discharge to Swing/IRU/Generations: <Sunshine Torres - 02/01/17 14:18> <Clau Schmidt V - 02/01/17 13:28> - Disposition 62 To [facility] <Sunshine Torres - 02/01/17 14:18>
[2017-02-01 15:29] VITALS: BP 107/61; PULSE 75; RESP 16; TEMP 98.3; O2SAT 96
[2017-02-01 16:44] VITALS: BMI 31.4
== END 2017-02-01 16:18 ==
LOC: MED 14:17 → ED 14:17 → MED 17:20
PROVIDERS: ADMIT Internal Medicine; ATTEND Internal Medicine

== ENCOUNTER 2017-02-01 16:18 | Inpatient (IN) ==
[2017-02-01 16:49] VITALS: BMI 31.6
[2017-02-01] MEDS ORDERED: FALL RISK - PHARMACY CONSULT MC PRN (16:51)
[2017-02-01] MEDS ORDERED: DOCUSATE SODIUM 100 MG CAPSULE PO PRN (16:51)
[2017-02-01] MEDS ORDERED: CYCLOBENZAPRINE 10 MG TABLET PO PRN (16:51)
[2017-02-01] MEDS: ALBUTEROL 2.5mg/3ml (0.083%) NEB AEROSOL SCH (19:14)
[2017-02-01] MEDS: SOTALOL 80 MG TABLET PO SCH (20:14)
[2017-02-01] MEDS: Bisacodyl EC TAB 5 MG TABLET PO SCH (21:54)
[2017-02-01] MEDS: MINOXIDIL 2.5 MG TABLET PO SCH (21:55)
[2017-02-01] MEDS: CITALOPRAM 20 MG TABLET PO SCH (21:55)
[2017-02-01] MEDS: QUETIAPINE 50 MG TABLET PO SCH (21:56)
[2017-02-01] MEDS: RANITIDINE 150 MG TABLET PO SCH (21:56)
[2017-02-01] MEDS: HYDROMORPHONE 2 MG TABLET PO PRN (21:57)
[2017-02-01] MEDS: POLYETHYL GLYCOL 3350 17gm PACKET PO SCH (21:57)
[2017-02-02] MEDS: SOTALOL 80 MG TABLET PO SCH ×2 (06:19→20:36)
[2017-02-02] MEDS: PANTOPRAZOLE 40 MG TABLET PO SCH (06:20)
[2017-02-02] MEDS: Bisacodyl EC TAB 5 MG TABLET PO SCH ×2 (08:25→20:12)
[2017-02-02] MEDS: LACTOBACILLUS (15B cfu) CAPSULE PO SCH (08:25)
[2017-02-02] MEDS: MINOXIDIL 2.5 MG TABLET PO SCH ×2 (08:25→20:13)
[2017-02-02] MEDS: CYANOCOBALAMIN (B-12) 500mcg TABLET PO SCH (08:25)
[2017-02-02] MEDS: AMLODIPINE 10 MG TABLET PO SCH (08:26)
[2017-02-02] MEDS: POLYETHYL GLYCOL 3350 17gm PACKET PO SCH ×2 (08:29→20:11)
[2017-02-02] MEDS: ALBUTEROL 2.5mg/3ml (0.083%) NEB AEROSOL SCH ×2 (11:15→19:08)
--- NOTE | 2017-02-02 11:15 | IRU History & Physical Report ---
HPI [facility] Date: Chief complaint: My back hurts and I'm weak HPI: Mr. Carpenter was evaluated in his room on the inpatient rehabilitation unit. He notes that he underwent laminectomy and synovial cyst removal )L4-5) by Dr. Javier Keller in [place] on 01/29/2017. This is without complications. He was subsequently sent home. Unfortunately he fell at home and found it difficult to get up. He was brought back to the emergency department and evaluated. Prior to that home health had seen him and reported a fever of 101 and some redness of the wound. However, in the emergency room department he was found to be afebrile and the wound looked okay. He was initially admitted to outpatient observation. Subsequently he was seen by physical therapy and occupational therapy and was felt to be a good candidate for inpatient rehabilitation. Patient states that he does have pain going down his right leg to about the mid calf area. This is been present for a number of months. He reports that the back pain has been worsening over the past 6 months. He does report weakness in the leg but also reports pain in the knees and states that he needs his knees replaced as well. He does have multiple medical problems including hypertension, history of atrial fibrillation, history of acute myocardial infarction with coronary artery bypass graft procedure (apparently two-vessel). He denies any current chest pains. He does have history of pacemaker placement, peripheral vascular arterial disease with history of bilateral balloon and stent placement in his lower extremities, as well as bilateral carotid endarterectomies. He does report dyspnea with activity. He denies any cough or sputum. He has been evaluated and is a candidate for acute rehabilitation. He can tolerate 3 hours of therapy daily and will benefit from this. We will involve occupational therapy and speech therapy. He is noted to be somewhat hypoxemic with a room air saturation of around 87%. He apparently does not use oxygen at home and states that he has never been told that he has COPD or underlying pulmonary problems. He is a retired welder machine operator and outside machinist. He lives at home with his . Has 2 steps in the front and 2 steps in the back. The patient has decreased strength, decreased endurance, pain and poor safety awareness along with poor balance. It is unsafe to attempt to shower or tub transfer with the patient at this time. Review of Systems - Constitutional Constitutional: Present: fatigue, weakness. Absent: fever(s), increased appetite, lethargy, night sweats - EENMT Eyes: Absent: blurry vision, change in vision, pain Ears: Absent: ear pain Balance: Absent: vertigo, ataxia - Cardiovascular Cardiovascular: Present: dyspnea on exertion. Absent: chest pain, palpitations , syncope, orthopnea Rhythm: Present: regular rhythm Cardiovascular Comments: Has history of multiple cardiovascular and peripheral vascular disease issues. Please see history of present illness. Currently denies any definite claudication although does complain of pain in the right leg which sounds more radicular. - Respiratory Respiratory: Present: dyspnea, dyspnea on exertion. Absent: cough, wheezing, chest congestion - Gastrointestinal Gastrointestinal: Absent: abdominal pain, constipation, diarrhea, early satiety , nausea, vomiting - Musculoskeletal Musculoskeletal: Present: back pain Musculoskeletal Comments: Comparison bilateral knee pain as well and does have known underlying osteoarthritis of the knees. - Neurological Neurological: Present: frequent falls [facility] Patient Stated Medical History Transient Ischemic Attacks ( Yes TIA) Angina Yes Coronary Artery Disease Yes Hypertension Yes Myocardial Infarction Yes Gastroesophageal Reflux Yes Disease Ulcer Yes: 3-STOMACH 1-SMALL INTESTINE Clostridium Difficile Yes Depression Yes Clinic Medical History (Last Updated 02/01/17 @ 13:28 by Clau Schmidt APRN) Heart attack (Acute Medical) Coronary artery disease (Chronic Medical) HTN (hypertension) (Chronic Medical) Peripheral arterial disease (Chronic Medical) Prior surgeries: 1. Coronary artery bypass grafttwo-vessel 2. Bilateral carotid endarterectomy 3. L2-3 laminectomy 12 years ago 4. L4-5 laminectomy and synovial cyst removal 01/29/2017 Dr. Javier Keller 5. Bilateral lower extremity balloon/angioplasty and stent placement 6. Carpal tunnel repair 7. Pacemaker placement Medical history: 1. Coronary artery disease with previous myocardial infarction 2. Atherosclerotic peripheral vascular disease 3. TIA 4. Hypertension 5. Atrial fibrillation 6. Osteoarthritis of the knees 7. 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 Keller). CABG-2011 with stent placement (Dr Sharpe). Pacemaker- 2011. Carotid endarterectomy-2015- (Dr Mccoy). Bilateral lower extremity stenting ( lower ext and Iliac) ballooning-2010,2012- (Dr Gabriel). Colonoscopy-2013. EGD -2011. Cardiac catheter-2011. Carpal tunnel repair-Dr. Cai. L2-L3 microdisectomy Family History: Family History (Last Reviewed 01/11/17 @ 10:38 by Nena Watts [facility]) Mother Arthritis Father HTN (hypertension) Heart attack Mother from some occlusion of a "tube to her bladder." One sister is living with bilateral total knee replacements Brother with throat cancer - Social History Smoking status: Former smoker packs per day: 1 (patient smoked one pack daily from age 15 through age 70 at which time he stopped.) Alcohol intake: never Alcohol intake frequency: does not drink Current occupational status: previously employed Current occupational exposures/hazards: Yes (former welder machine operator) Does patient use chewing tobacco?: No Current residence: Apartment/Private Home Medications Home Medications Medication Instructions Recorded Confirmed Type Quetiapine Fumarate [Seroquel] 50 mg PO HS #0 08/04/11 02/01/17 History Pantoprazole Sodium 40 mg PO DAILY #0 11/27/11 02/01/17 History Nitroglycerin 0.4 mg SL Q5M PRN #0 01/12/12 02/01/17 History Amlodipine Besylate 10 mg PO DAILY #0 11/28/12 02/01/17 History Citalopram Hydrobromide 20 mg PO HS #0 11/28/12 02/01/17 History [Citalopram HBr] Cyanocobalamin (Vitamin B-12) 1,000 mcg PO DAILY #30 tab 07/14/16 02/01/17 History [Vitamin B-12] Minoxidil 5 mg PO BID #0 11/04/16 02/01/17 History raNITIdine HCl [Zantac] 150 mg PO HS #0 tab 11/04/16 02/01/17 History Albuterol Inhaler [Ventolin Hfa] 2 puff ORAL INH BID 01/02/17 02/01/17 History metoprolol tartrate 25 mg tablet 25 mg PO BID tab 01/11/17 02/01/17 History Cyclobenzaprine [Flexeril] 10 mg PO Q8H PRN 01/31/17 02/01/17 History Docusate Sodium [Colace] 1 cap PO DAILY PRN 01/31/17 02/01/17 History Hydromorphone [Dilaudid] 2 mg PO Q6H PRN 01/31/17 02/01/17 History Lactobacillus Acidophilus 2 cap PO DAILY 01/31/17 02/01/17 History [Probiotic] Allergies Allergy/AdvReac Type Severity Reaction Status Date / Time cephalexin Allergy Unknown C DIFF Verified 01/31/17 14:34 labetalol Allergy Unknown Verified 01/31/17 14:34 nitrofurantoin AdvReac Intermediate NAUSEA Verified 01/31/17 14:34 aliskiren [From [place]] AdvReac Mild Cramping Verified 01/31/17 14:34 of the Muscles amlodipine [From Lotrel] AdvReac Mild achy Verified 01/31/17 14:34 joints, muscle weakness benazepril [From Lotrel] AdvReac Mild achy Verified 01/31/17 14:34 joints, muscle weakness clonidine AdvReac Mild MUSCLE PAIN Verified 01/31/17 14:34 felodipine AdvReac Mild MUSCLE PAIN Verified 01/31/17 14:34 hydrochlorothiazide AdvReac Mild MUSCLE PAIN Verified 01/31/17 14:34 lisinopril AdvReac Mild ACHY Verified 01/31/17 14:34 JOINTS, MUSCLE WEAKNESS tramadol AdvReac Mild not Verified 01/31/17 14:34 effective valsartan AdvReac Mild MUSCLE PAIN Verified 01/31/17 14:34 hydrocodone AdvReac Unknown NOT Verified 01/31/17 14:34 EFFECTIVE indomethacin AdvReac Unknown "STOMACH Verified 01/31/17 14:34 PROBLEMS" morphine AdvReac Unknown BELLIGERENT Verified 01/31/17 14:34 simvastatin AdvReac Unknown MUSCLE Verified 01/31/17 14:34 CRAMPS diphenhydramine HCl Allergy Mild "HAS Uncoded 01/02/17 00:16 OPPOSITE EFFECT" aliskiren hemifumarate AdvReac Mild MUSCLE PAIN Uncoded 01/02/17 00:16 benazepril HCl AdvReac Mild MUSCLE PAIN Uncoded 01/02/17 00:16 diltiazem HCl AdvReac Mild MUSCLE PAIN Uncoded 01/02/17 00:09 olmesartan medoxomil AdvReac Mild MUSCLE PAIN Uncoded 01/02/17 00:16 varenicline tartrate AdvReac Unknown "WENT Uncoded 01/02/17 00:16 CRAZY" Exam Vital Signs: Temperature 98.5 F 02/02/17 08:00 Pulse Rate 73 02/02/17 08:00 Respiratory Rate 18 02/02/17 08:00 Blood Pressure 118/72 02/02/17 08:00 Pulse Oximetry 91 02/02/17 08:00 Oxygen Delivery Method Room Air Height: 1.85 m Weight: 109 kg Body Mass Index: 31.6 - Constitutional Present: no acute distress, obese - Routine HEENT Exam Head: Present: normocephalic Eye: Present: EOMI ENT: Present: mucous membranes moist - Routine Neck Exam Present: supple - Routine Respiratory Exam Present: CTA bilaterally - Routine Cardiovascular Exam Present: RRR, no murmur - Routine Abdominal Exam Present: soft, normoactive bowel sounds, non distended, non tender Comments: Obese - Routine Extremities Exam Present: no edema, non tender - Routine Skin Exam Absent: erythema - Routine Neurological Exam Present: alert, oriented X3 - Routine Psychiatric Exam Present: normal affect, normal thought process, anxious Sepsis Assessment - Evaluation Sepsis screening result: No Definite Risk IRU A/P (1) Back pain Qualifiers: Back pain location: low back pain Chronicity: chronic Back pain laterality: midline Sciatica presence: with sciatica Sciatica laterality: sciatica of right side Qualified Code(s): M54.41 - Lumbago with sciatica, right side; G89.29 - Other chronic pain Current visit: No Status: Acute Patient has a six-month history of back pain with right leg radiation. As a result he has become debilitated with decreased muscle strength in the lower extremities. We will pursue physical therapy and occupational therapy for improvement in ambulatory ability, transfers and increased endurance. He is status post recent laminectomy and synovial cyst removal. (2) S/P laminectomy Current visit: No Status: Acute There currently is no evidence of infection. He is stable status post laminectomy but will require intensive individualized physical therapy and occupational therapy to regain his former level of functioning. (3) Coronary artery disease Qualifiers: Coronary Disease-Associated Artery/Lesion type: bypass graft [place] vs. transplanted heart: [place] heart Associated angina: without angina Qualified Code(s): I25.810 - Atherosclerosis of coronary artery bypass graft(s) without angina pectoris Current visit: No Status: Chronic Currently denies chest pain but does have some dyspnea with activity likely related to underlying occult lung disease versus deconditioning. Per medical team at hospitalists have been consulted. (4) HTN (hypertension) Qualifiers: Hypertension type: essential hypertension Qualified Code(s): I10 - Essential (primary) hypertension Current visit: No Status: Chronic Per medical team. Patient is on multiple medications for his blood pressure. (5) Debility Current visit: Yes Status: Acute Patient is debilitated from long-term reduced activity related to his chronic back pain. Barriers to improvement include pain in the low back as well as right leg radiation and muscle weakness. In addition medical issues impact his ability to progress with regard to his dyspnea with activity and deconditioning. DVT Prophylaxis: SCD's Resuscitation Status: Do Not Resuscitate - Course Hospital Course: Manohar Butt MD: 02/02/17 11:26 Patient was initially seen in the department, admitted as outpatient observation and is now on the rehabilitation unit. He is getting started with physical therapy and occupational therapy and seems to be motivated. - Interventions to Obtain Goals PT Treatment Plan: Balance/Proprioception, Functional Activities, Gait Training OT Treatment Plan: ADL (Basic Care), Balance Training, Pt./Family Education, Ther. Exercise for ADL
--- NOTE | 2017-02-02 11:31 | IRU 24Hr Post Admit Eval ---
24 Hr Post Admission Physical - Relevant Changes Relevant Changes: No Reviewed: I have reviewed the patient's information and concur with the finding and results of the pre-admission screen. Certification: I certify the patient for rehabilitation. - Patient Condition (1) Back pain Status: Acute Qualifiers: Back pain location: low back pain Chronicity: chronic Back pain laterality: midline Sciatica presence: with sciatica Sciatica laterality: sciatica of right side Qualified Code(s): M54.41 - Lumbago with sciatica, right side; G89.29 - Other chronic pain Code(s): M54.9 - Dorsalgia, unspecified (2) S/P laminectomy Status: Acute Code(s): Z98.890 - Other specified postprocedural states (3) Coronary artery disease Status: Chronic Qualifiers: Coronary Disease-Associated Artery/Lesion type: bypass graft [place] vs. transplanted heart: [place] heart Associated angina: without angina Qualified Code(s): I25.810 - Atherosclerosis of coronary artery bypass graft(s) without angina pectoris Code(s): I25.10 - Atherosclerotic heart disease of [place] coronary artery without angina pectoris (4) HTN (hypertension) Status: Chronic Qualifiers: Hypertension type: essential hypertension Qualified Code(s): I10 - Essential (primary) hypertension Code(s): I10 - Essential (primary) hypertension (5) Debility Status: Acute Code(s): R53.81 - Other malaise - Current Functional Status Failed Alternative Therapy: Yes Patient Requirements: The patient requires oversight by rehabilitation physician to manage their rehabilitation treatment plan and multidisciplinary approach to care that can only be provided in an IRF and requires a multidisciplinary approach to care, provided by professional PTs, OTs, STs, dieticians, RTs, rehabilitation nurses and is not available in lesser levels of care. Limitiations Req: Mobility Impairment, ADL Impairment, Respiratory Impairment Physical Therapy Minutes: 90 Occupational Therapy Minutes: 90 Therapy: The patient is to receive therapy at least 5 days a week. - Complications/Comorbidities Barriers to Discharge: Weakness, Endurance, Pain Control, Medical Limitation - Plan to Avoid Complications Plan to Avoid Complications: The patient cannot receive this care in a lesser intensive setting such as Custodial or Outpatient Therapy due to the patient requiring the following : Multiple medical problems including underlying coronary artery disease, hypoxemia with saturations 87% on room air, severe debilitation, peripheral vascular arterial disease and degenerative joint disease of both knees. He will require a coordinated individualized plan of care to involve nursing, medical, OT and PT..
--- NOTE | 2017-02-02 13:30 | Consult Note ---
<Harriet Dozier - Last Filed: 02/02/17 13:26> Consult Information - Data of Consult Patient: known to practice within the last 3 years Consult date: 02/02/17 Requesting Physician: Manohar Butt MD Primary Care Provider: Kim Duff MD Family Provider: Kim Duff MD - Consult Narrative Reason for consult: Medical management History of present illness: Caesar Carpenter is a pleasant 76-year-old male who was recently admitted to [facility] after sustaining a fall at home. He reports that he underwent a laminectomy of L4-L5 with synovial cyst resection on 01/29/17 at [facility] under the care of Dr. Keller. Surgery went well without reported complications. He was discharged home on 01/30/17, however, had difficulty with ambulation and pain control. During the night of 01/30, he reportedly fell at which time his stated she was unable to safely take care of him. Home health visited the him on 01/31 reportedly found him to have a fever of 1010 and directed him to [facility] for further evaluation. Upon arrival to the ED, he was found to be afebrile at 98.6. Laboratory studies were obtained at that time and revealed mild leukocytosis with WBC at 13.6, hemoglobin 14.1, hematocrit 42.3. Sodium 138 , potassium 3.9, BUN 17, creatinine 1.3. Urinalysis was unremarkable. Patient was afebrile 98.6, pulse 82, respiration rate 20, blood pressure 152/68, room air saturations 93%. Given patient's recent surgery as well as his uncontrolled pain, he was accepted by the hospitalist service in outpatient observation status. During his brief hospitalization, he was seen and evaluated by physical therapy and occupational therapy and found to be a good candidate for inpatient rehabilitation. He was transferred to IRU to maximize his functional ability and strength. The hospitalist service was consulted for medical management as he has a history of multiple medical problems including hypertension, atrial fibrillation, history of acute myocardial infarction with coronary artery bypass graft procedure (apparently two-vessel). He denies any current chest pains. On exam, he is seen while resting in his room. His is at bedside. He is very pleasant, alert and orientated on exam but appears drowsy. He complains of right leg pain which he states is identical to his chronic pain. He states that he needs a right knee replacement but needed to have his back fixed first. He denies any chest pain, shortness of breath, abdominal pain, nausea, vomiting , dysuria or diarrhea. His appetite is good and bowels are moving. Nursing notes were reviewed and it is noted that he appears to be somewhat hypoxemic with a room air saturation of around 87%. He denies use of oxygen at home and states that he has never been told that he has COPD or underlying pulmonary problems, despite using albuterol inhalers at home. He admits to smoking for about 60 years, quitting about 6 years ago. Labs today reveal resolution of leukocytosis noted upon admission with WBC at 6.5, hemoglobin 13.1 and platelets 223. BMP was unremarkable with sodium 137, potassium 3.9, BUN 16, SCr 1.1 and mild hyperglycemia with glucose at 111. Cardiac exam reveals regular rate and rhythm. Lungs are clear to auscultation. Abdomen soft, distended and nontender with active bowel sounds. No edema noted to lower extremities with 2+ pedal pulses bilaterally. [facility] Medical History Updates: Peripheral arterial disease. HTN (hypertension). History of Heart attack. Coronary artery disease. Depression. History of C. Diff. PUD. GERD. History of TIA. A-fib. Osteoarthritis. Surgical History: L4-L5 laminectomy with synovial cyst removal-01/29/17- (Dr. Keller). CABG-2011 with stent placement (Dr Sharpe). Pacemaker- 2011. Carotid endarterectomy-2015- (Dr Mccoy). Bilateral lower extremity stenting ( lower ext and Iliac) ballooning-2010,2012- (Dr Gabriel). Colonoscopy-2013. EGD -2011. Cardiac catheter-2011. Carpal tunnel repair-Dr. Cai. L2-L3 microdisectomy. Family History: Family History Mother Arthritis. Father HTN (hypertension). Heart attack. - Social History Household members: spouse Current occupational status: retired (certified welder and cloth tester quality) Does patient use chewing tobacco?: No Current residence: Apartment/Private Home Social history: PCP - Kim Duff. Review of Systems - Constitutional Constitutional: Present: fatigue, weakness. Absent: fever(s), increased appetite, lethargy, night sweats - EENMT Eyes: Absent: blurry vision, change in vision, pain Ears: Absent: ear pain Balance: Absent: vertigo, ataxia - Cardiovascular Cardiovascular: Present: dyspnea on exertion. Absent: chest pain, palpitations , syncope, orthopnea Rhythm: Present: regular rhythm - Respiratory Respiratory: Present: dyspnea, dyspnea on exertion. Absent: cough, wheezing, chest congestion - Gastrointestinal Gastrointestinal: Absent: abdominal pain, constipation, diarrhea, early satiety , nausea, vomiting - Genitourinary Genitourinary: Absent: dysuria - Musculoskeletal Musculoskeletal: Present: back pain - Integumentary/Breasts Integumentary: Absent: rash, jaundice - Neurological Neurological: Present: frequent falls, weakness. Absent: dizziness - Psychiatric Psychiatric: Present: depression. Absent: behavioral changes Medications Home Medications Medication Instructions Recorded Confirmed Type Quetiapine Fumarate [Seroquel] 50 mg PO HS #0 08/04/11 02/01/17 History Pantoprazole Sodium 40 mg PO DAILY #0 11/27/11 02/01/17 History Nitroglycerin 0.4 mg SL Q5M PRN #0 01/12/12 02/01/17 History Amlodipine Besylate 10 mg PO DAILY #0 11/28/12 02/01/17 History Citalopram Hydrobromide 20 mg PO HS #0 11/28/12 02/01/17 History [Citalopram HBr] Cyanocobalamin (Vitamin B-12) 1,000 mcg PO DAILY #30 tab 07/14/16 02/01/17 History [Vitamin B-12] Minoxidil 5 mg PO BID #0 11/04/16 02/01/17 History raNITIdine HCl [Zantac] 150 mg PO HS #0 tab 11/04/16 02/01/17 History Albuterol Inhaler [Ventolin Hfa] 2 puff ORAL INH BID 01/02/17 02/01/17 History metoprolol tartrate 25 mg tablet 25 mg PO BID tab 01/11/17 02/01/17 History Cyclobenzaprine [Flexeril] 10 mg PO Q8H PRN 01/31/17 02/01/17 History Docusate Sodium [Colace] 1 cap PO DAILY PRN 01/31/17 02/01/17 History Hydromorphone [Dilaudid] 2 mg PO Q6H PRN 01/31/17 02/01/17 History Lactobacillus Acidophilus 2 cap PO DAILY 01/31/17 02/01/17 History [Probiotic] Allergies Allergy/AdvReac Type Severity Reaction Status Date / Time cephalexin Allergy Unknown C DIFF Verified 01/31/17 14:34 labetalol Allergy Unknown Verified 01/31/17 14:34 nitrofurantoin AdvReac Intermediate NAUSEA Verified 01/31/17 14:34 aliskiren [From Tekturna] AdvReac Mild Cramping Verified 01/31/17 14:34 of the Muscles amlodipine [From Lotrel] AdvReac Mild achy Verified 01/31/17 14:34 joints, muscle weakness benazepril [From Lotrel] AdvReac Mild achy Verified 01/31/17 14:34 joints, muscle weakness clonidine AdvReac Mild MUSCLE PAIN Verified 01/31/17 14:34 felodipine AdvReac Mild MUSCLE PAIN Verified 01/31/17 14:34 hydrochlorothiazide AdvReac Mild MUSCLE PAIN Verified 01/31/17 14:34 lisinopril AdvReac Mild ACHY Verified 01/31/17 14:34 JOINTS, MUSCLE WEAKNESS tramadol AdvReac Mild not Verified 01/31/17 14:34 effective valsartan AdvReac Mild MUSCLE PAIN Verified 01/31/17 14:34 hydrocodone AdvReac Unknown NOT Verified 01/31/17 14:34 EFFECTIVE indomethacin AdvReac Unknown "STOMACH Verified 01/31/17 14:34 PROBLEMS" morphine AdvReac Unknown BELLIGERENT Verified 01/31/17 14:34 simvastatin AdvReac Unknown MUSCLE Verified 01/31/17 14:34 CRAMPS diphenhydramine HCl Allergy Mild "HAS Uncoded 01/02/17 00:16 OPPOSITE EFFECT" aliskiren hemifumarate AdvReac Mild MUSCLE PAIN Uncoded 01/02/17 00:16 benazepril HCl AdvReac Mild MUSCLE PAIN Uncoded 01/02/17 00:16 diltiazem HCl AdvReac Mild MUSCLE PAIN Uncoded 01/02/17 00:09 olmesartan medoxomil AdvReac Mild MUSCLE PAIN Uncoded 01/02/17 00:16 varenicline tartrate AdvReac Unknown "WENT Uncoded 01/02/17 00:16 CRAZY" Exam Vital Signs: Temperature 98.5 F 02/02/17 08:00 Pulse Rate 73 02/02/17 08:00 Respiratory Rate 18 02/02/17 11:14 Blood Pressure 118/72 02/02/17 08:00 Pulse Oximetry 91 02/02/17 08:00 Oxygen Delivery Method Room Air Height: 6 ft 1 in Weight: 240 lb 4.862 oz Body Mass Index: 31.6 Results - Labs CBC & Chem 7: 02/02/17 03:54 02/02/17 03:54 Assessment and Plan (1) Debility Current visit: Yes Status: Acute (2) S/P laminectomy Current visit: No Status: Acute (3) Back pain Current visit: No Status: Acute 02/02/17 13:32 secondary to fall at home prior to admission. (4) Neuropathy, idiopathic Current visit: No Status: Acute (5) A-fib Current visit: No Status: Chronic (6) History of TIA (transient ischemic attack) Current visit: No Status: Resolved (7) HTN (hypertension) Current visit: No Status: Chronic (8) Coronary artery disease Current visit: No Status: Chronic (9) Peripheral arterial disease Current visit: No Status: Chronic (10) OA (osteoarthritis) of knee Current visit: No Status: Chronic (11) GERD (gastroesophageal reflux disease) Current visit: No Status: Chronic (12) Depression Current visit: Yes Status: Chronic DVT Prophylaxis: SCD's GI Prophylaxis: Protonix Resuscitation Status: Do Not Resuscitate Assessment and Plan: -Back Pain s/p L4-5 Laminectomy with acute neuropathy and debility: .Agree with admission to IRU under the care of Dr. Butt and team. Pain control per Dr. Butt. .Encourage participation in therapies to maximize strength and functional ability. .Continue Flexeril and dilaudid as needed for pain. .Encourage incentive spironmetry for pulmonary toileting. .Continue bowel motivation with dulcolax, colace and miralax. .History of C. diff. Continue culturelle and monitor closely. .Patient reports home albuterol but denies any known lung issues including COPD. During recent hospitalization, patient noted to become hypoxic at night and was given O2 as needed. Denies history of home O2 use. Current SAO2 91% on room air. Oxygen as needed, weaning as able. Consider nocturnal and ambulatory oximetry. .Will monitor labs periodically throughout admission. -A-fib, chronic, with history of TIA: .Continue betapace. Monitor vital signs closely. .SCDs for DVT prophalyxis. .Patient's ASA has been on hold since his surgery. He states that he is scheduled to resume his ASA 325mg daily on 02/05. -Hypertension with CAD and PAD: .Continue home Norvasc and Lopressor. Monitor blood pressure closely. -Osteoarthritis: -GERD with history of PUD: .Continue Protonix and Zantac for GI protection and GERD. -Depression: .Continue home Celexa, B12 and Seroquel. Monitor closely for signs of worsening depression. Upon discharge, patient's care to be returned to his PCP. - Time spent with patient greater than 35 minutes Hospital Course Summary Disclaimer: The visit summary below is not to be considered part of the above Progress Note. Hospital Course: 02/02/17 14:35 -Back Pain s/p L4-5 Laminectomy with acute neuropathy and debility: .Agree with admission to IRU under the care of Dr. Butt and team. Pain control per Dr. Butt. .Encourage participation in therapies to maximize strength and functional ability. .Continue Flexeril and dilaudid as needed for pain. .Encourage incentive spironmetry for pulmonary toileting. .Continue bowel motivation with dulcolax, colace and miralax. .History of C. diff. Continue culturelle and monitor closely. .Patient reports home albuterol but denies any known lung issues including COPD. During recent hospitalization, patient noted to become hypoxic at night and was given O2 as needed. Denies history of home O2 use. Current SAO2 91% on room air. Oxygen as needed, weaning as able. Consider nocturnal and ambulatory oximetry. .Will monitor labs periodically throughout admission. -A-fib, chronic, with history of TIA: .Continue betapace. Monitor vital signs closely. .SCDs for DVT prophalyxis. .Patient's ASA has been on hold since his surgery. He states that he is scheduled to resume his ASA 325mg daily on 02/05. -Hypertension with CAD and PAD: .Continue home Norvasc and Lopressor. Monitor blood pressure closely. -Osteoarthritis: -GERD with history of PUD: .Continue Protonix and Zantac for GI protection and GERD. -Depression: .Continue home Celexa, B12 and Seroquel. Monitor closely for signs of worsening depression. Upon discharge, patient's care to be returned to his PCP. Sepsis Assessment - Evaluation Sepsis screening result: No Definite Risk <Sunshine Torres - Last Filed: 02/02/17 19:57> Consult Information - Data of Consult Requesting Physician: Manohar Butt MD Primary Care Provider: Kim Duff MD Family Provider: Kim Duff MD [facility] Patient Stated Medical History Transient Ischemic Attacks ( Yes TIA) Angina Yes Coronary Artery Disease Yes Hypertension Yes Myocardial Infarction Yes Gastroesophageal Reflux Yes Disease Ulcer Yes: 3-STOMACH 1-SMALL INTESTINE Clostridium Difficile Yes Depression Yes Clinic Medical History (Last Updated 02/02/17 @ 14:36 by ARNAUD Cooper) Heart attack (Acute Medical) Coronary artery disease (Chronic Medical) HTN (hypertension) (Chronic Medical) Peripheral arterial disease (Chronic Medical) Family History: Family History (Last Reviewed 01/11/17 @ 10:38 by Nena Watts Ilir) Mother Arthritis Father HTN (hypertension) Heart attack Exam Vital Signs: Temperature 98.2 F 02/02/17 16:00 Pulse Rate 78 02/02/17 16:00 Respiratory Rate 16 02/02/17 19:08 Blood Pressure 131/78 02/02/17 16:00 Pulse Oximetry 91 02/02/17 16:00 Oxygen Delivery Method Room Air Height: 1.85 m Weight: 109 kg Results - Labs CBC & Chem 7: 02/02/17 03:54 02/02/17 03:54 Assessment and Plan (1) Coronary artery disease Current visit: No Status: Chronic (2) HTN (hypertension) Current visit: No Status: Chronic (3) Peripheral arterial disease Current visit: No Status: Chronic (4) Neuropathy, idiopathic Current visit: No Status: Acute (5) S/P laminectomy Current visit: No Status: Acute (6) Back pain Current visit: No Status: Acute (7) A-fib Current visit: No Status: Chronic (8) OA (osteoarthritis) of knee Current visit: No Status: Chronic (9) History of TIA (transient ischemic attack) Current visit: No Status: Resolved (10) GERD (gastroesophageal reflux disease) Current visit: No Status: Chronic (11) Debility Current visit: Yes Status: Acute (12) Depression Current visit: Yes Status: Chronic Hospital Course Summary Disclaimer: The visit summary below is not to be considered part of the above Progress Note.
[2017-02-02] MEDS: HYDROMORPHONE 2 MG TABLET PO PRN (17:26)
[2017-02-02] MEDS: RANITIDINE 150 MG TABLET PO SCH ×2 (20:15→22:38)
[2017-02-02] MEDS: QUETIAPINE 50 MG TABLET PO SCH ×2 (20:15→22:38)
[2017-02-02] MEDS: CITALOPRAM 20 MG TABLET PO SCH ×2 (20:15→22:38)
[2017-02-03] MEDS: PANTOPRAZOLE 40 MG TABLET PO SCH (06:10)
[2017-02-03] MEDS: SOTALOL 80 MG TABLET PO SCH ×2 (06:10→19:55)
--- NOTE | 2017-02-03 09:35 | IRU Progress Note ---
- Subjective/Serverity of Illness Mr. Carpenter states that he would like to go home. Continues to have significant discomfort in the low back as well as radiation on the right leg. It is somewhat difficult for him to differentiate sciatica type of discomfort from his bilateral knee pain. He states that both knees bother him quite a bit and he needs those replaced as well. He does report history of TIA characterized by dizziness arrhythmia. He does have multiple vascular issues in terms carotid endarterectomy bilaterally, coronary artery disease and peripheral vascular disease. He states that he is getting stronger. He is walking with a walker and states that he is doing well in that regard. Requires assistance for transfers. He denies any current shortness of breath. He is on albuterol at home. States that he has never been told that he has COPD/emphysema. Denies current cough or sputum. Exam Vital Signs: Temperature 98.4 F 02/02/17 21:52 Pulse Rate 64 02/03/17 06:10 Respiratory Rate 18 02/02/17 21:52 Blood Pressure 118/72 02/02/17 21:52 Pulse Oximetry 88 L 02/02/17 21:52 Oxygen Delivery Method Room Air Height: 1.85 m Weight: 109 kg Body Mass Index: 31.6 - Constitutional Present: no acute distress - Routine HEENT Exam Head: Present: normocephalic Eye: Present: EOMI ENT: Present: mucous membranes moist - Routine Neck Exam Present: supple - Routine Respiratory Exam Present: decreased breath sounds - Routine Cardiovascular Exam Present: RRR, no murmur - Routine Abdominal Exam Present: non tender - Routine Extremities Exam Present: no edema Sepsis Assessment - Evaluation Sepsis screening result: No Definite Risk IRU A/P (1) Back pain Qualifiers: Back pain location: low back pain Chronicity: chronic Back pain laterality: midline Sciatica presence: with sciatica Sciatica laterality: sciatica of right side Qualified Code(s): M54.41 - Lumbago with sciatica, right side; G89.29 - Other chronic pain Current visit: No Status: Acute Continues to recover from his laminectomy and synovial cyst removal. Has pain down mainly the right leg as well as bilateral knee pain. This is a barrier to his improvement was regard to rehabilitation. Continues to cooperate with therapies and recommend continued PT and OT in this regard. (2) S/P laminectomy Current visit: No Status: Acute (3) Coronary artery disease Qualifiers: Coronary Disease-Associated Artery/Lesion type: bypass graft [place] vs. transplanted heart: [place] heart Associated angina: without angina Qualified Code(s): I25.810 - Atherosclerosis of coronary artery bypass graft(s) without angina pectoris Current visit: No Status: Chronic Denies current chest discomfort. (4) HTN (hypertension) Qualifiers: Hypertension type: essential hypertension Qualified Code(s): I10 - Essential (primary) hypertension Current visit: No Status: Chronic (5) Debility Current visit: Yes Status: Acute This is significant debility. Is walking with a walker with contact-guard assist. Plan for dismissal to home ultimately. DVT Prophylaxis: SCD's Resuscitation Status: Do Not Resuscitate - Course Hospital Course: Manohar Butt MD: 02/02/17 11:26 Patient was initially seen in the department, admitted as outpatient observation and is now on the rehabilitation unit. He is getting started with physical therapy and occupational therapy and seems to be motivated. - Interventions to Obtain Goals PT Treatment Plan: Balance/Proprioception, Functional Activities, Gait Training , Patient/Family Education, Therapeutic Exercise OT Treatment Plan: ADL (Basic Care), Balance Training, Pt./Family Education, Ther. Exercise for ADL
[2017-02-03] MEDS: ALBUTEROL 2.5mg/3ml (0.083%) NEB AEROSOL SCH (09:47)
[2017-02-03] MEDS: CYANOCOBALAMIN (B-12) 500mcg TABLET PO SCH (10:00)
[2017-02-03] MEDS: LACTOBACILLUS (15B cfu) CAPSULE PO SCH (10:01)
[2017-02-03] MEDS: MINOXIDIL 2.5 MG TABLET PO SCH ×3 (10:01→21:15)
[2017-02-03] MEDS: POLYETHYL GLYCOL 3350 17gm PACKET PO SCH ×2 (10:02→19:59)
[2017-02-03] MEDS: Bisacodyl EC TAB 5 MG TABLET PO SCH ×2 (10:02→19:59)
[2017-02-03] MEDS: AMLODIPINE 10 MG TABLET PO SCH (10:07)
--- NOTE | 2017-02-03 11:12 | IRU Progress Note ---
- Subjective/Serverity of Illness Please see progress note from earlier today. The patient does have underlying neuropathy from his degenerative changes in the lumbar spine with synovial cyst. Also has muscle weakness in the lower extremities consistent with myopathy. Exam Vital Signs: Temperature 98.4 F 02/02/17 21:52 Pulse Rate 64 02/03/17 06:10 Respiratory Rate 16 02/03/17 08:30 Blood Pressure 118/72 02/02/17 21:52 Pulse Oximetry 93 02/03/17 08:30 Oxygen Delivery Method Room Air Height: 1.85 m Weight: 109 kg Body Mass Index: 31.6 Sepsis Assessment - Evaluation Sepsis screening result: No Definite Risk IRU A/P (1) Back pain Qualifiers: Back pain location: low back pain Chronicity: chronic Back pain laterality: midline Sciatica presence: with sciatica Sciatica laterality: sciatica of right side Qualified Code(s): M54.41 - Lumbago with sciatica, right side; G89.29 - Other chronic pain Current visit: No Status: Acute (2) S/P laminectomy Current visit: No Status: Acute (3) Coronary artery disease Qualifiers: Coronary Disease-Associated Artery/Lesion type: bypass graft [place] vs. transplanted heart: [place] heart Associated angina: without angina Qualified Code(s): I25.810 - Atherosclerosis of coronary artery bypass graft(s) without angina pectoris Current visit: No Status: Chronic (4) HTN (hypertension) Qualifiers: Hypertension type: essential hypertension Qualified Code(s): I10 - Essential (primary) hypertension Current visit: No Status: Chronic (5) Debility Current visit: Yes Status: Acute (6) Neuropathy, idiopathic Current visit: No Status: Acute Patient is experiencing neuropathic changes. It is unclear if this is related to his underlying medical condition or if it is related to his lumbar spinal radiculopathy. Has numbness in both legs right greater than left. (7) Myopathy Current visit: Yes Status: Acute Due to pain from his lumbar spine and reduced activity over a period of weeks, the patient has disuse myopathy. DVT Prophylaxis: SCD's Resuscitation Status: Do Not Resuscitate - Course Hospital Course: Manohar Butt MD: 02/02/17 11:26 Patient was initially seen in the department, admitted as outpatient observation and is now on the rehabilitation unit. He is getting started with physical therapy and occupational therapy and seems to be motivated. - Interventions to Obtain Goals PT Treatment Plan: Balance/Proprioception, Functional Activities, Gait Training , Patient/Family Education, Therapeutic Exercise OT Treatment Plan: ADL (Basic Care), Balance Training, Pt./Family Education, Ther. Exercise for ADL
--- NOTE | 2017-02-03 13:30 | IRU Team Meeting ---
IRU Team Meeting - Nursing Vital Signs: Vital Signs - 24 hr 02/02/17 16:00 02/02/17 19:08 02/02/17 20:36 Temperature 98.2 F Pulse Rate 78 68 Respiratory Rate 18 16 Blood Pressure 131/78 Pulse Oximetry 91 02/02/17 21:52 02/03/17 06:10 02/03/17 08:00 Temperature 98.4 F 98.2 F Pulse Rate 66 64 77 Respiratory Rate 18 18 Blood Pressure 118/72 121/78 Pulse Oximetry 88 L 90 02/03/17 08:30 Temperature Pulse Rate Respiratory Rate 16 Blood Pressure Pulse Oximetry 93 Current Medications: Albuterol Sulfate (Proventil Neb (0.083%)) 2.5 mg AEROSOL BID [facility] Last Admin: 02/03/17 09:47 Dose: 2.5 mg Amlodipine Besylate (Norvasc) 10 mg PO DAILY [facility] Last Admin: 02/03/17 10:07 Dose: 10 mg Bisacodyl (Dulcolax) 10 mg PO BID [facility] Last Admin: 02/03/17 10:02 Dose: Not Given Citalopram Hydrobromide (Celexa) 20 mg PO HS [facility] Last Admin: 02/02/17 22:38 Dose: Not Given Cyanocobalamin (Vit. B-12) 1,000 mcg PO DAILY [facility] Last Admin: 02/03/17 10:00 Dose: 1,000 mcg Cyclobenzaprine HCl (Flexeril) 10 mg PO Q8H PRN PRN Reason: Muscle pain Last Admin: 02/02/17 20:13 Dose: 10 mg Docusate Sodium (Colace) 100 mg PO DAILY PRN PRN Reason: Constipation /Stool softening Hydromorphone HCl (Dilaudid) 2 mg PO Q6H PRN PRN Reason: Pain Last Admin: 02/02/17 17:26 Dose: 2 mg Lactobacillus Acidophilus (Culturelle) 2 cap PO DAILY [facility] Last Admin: 02/03/17 10:01 Dose: 2 cap Metoprolol Tartrate (Lopressor) 25 mg PO BIDBS [facility] Last Admin: 02/03/17 10:01 Dose: 25 mg Minoxidil (Loniten) 5 mg PO BID [facility] Last Admin: 02/03/17 10:01 Dose: 5 mg Pantoprazole Sodium (Protonix Tab) 40 mg PO ACB [facility] Last Admin: 02/03/17 06:10 Dose: 40 mg Polyethylene Glycol (Miralax) 17 gm PO BID [facility] Last Admin: 02/03/17 10:02 Dose: Not Given Quetiapine Fumarate (Seroquel) 50 mg PO HS [facility] Last Admin: 02/02/17 22:38 Dose: Not Given Ranitidine HCl (Zantac) 150 mg PO HS [facility] Last Admin: 02/02/17 22:38 Dose: Not Given Sotalol HCl (Betapace) 40 mg PO BID/E [facility] Last Admin: 02/03/17 06:10 Dose: 40 mg Comments: Patient has limiting pain in his knees per nursing. Has history of multiple vascular issues but not current pains. Patient does not appreciate the food. He would prefer to loosen his diet and not limit fats, etc. Will expand to regular diet. He would like injection in the knee and hospitalists will consider consult. - Physical Therapy Supine to Sit Bed Mobility Ability: Contact Guard Assistance Sit to Supine Bed Mobility Ability: Contact Guard Assistance Comments: CGA for ambulation, car and stairs. Will need a front wheeled walker when he goes home. He is impulsive and requires cues during walking. - Occupational Therapy Eating Ability: Modified Independent Grooming Ability: Contact Guard Assistance Bathing Ability: Contact Guard Assistance Lower Body Dressing Adaptive Equipment: Long Handled Shoe Horn Lower Body Dressing Comment: Safety awareness is an issue. He is leaning on the wall for balance. - Care Plan Anticipated Length of Stay: 7 (Reassess in one week.) Anticipated DC Destination: Home Health Service (Uncertain acceptance of home health.) Interventions/Goals: Goals: Improve safety awareness, demonstrate proper hand placement 50% of the time, reduction in knee pain. Improve endurance. Barriers to progress: dissatisfaction with food, knee pain, back pain with neuropathic symptoms down the right leg, safety awareness. I personally led this multidisciplinary team meeting and concur with the conclusion and plans.
[2017-02-03] MEDS ORDERED: ALBUTEROL 2.5mg/3ml (0.083%) NEB AEROSOL PRN (15:46)
[2017-02-03] MEDS: HYDROMORPHONE 2 MG TABLET PO PRN (16:11)
[2017-02-03] MEDS ORDERED: BUPIVACAINE 0.25% (2.5mg/ml) PF 30ml INJECTION ISYN ONE ×2 (16:14→16:18)
[2017-02-03] MEDS ORDERED: TRIAMCINOLONE 40mg/ml 1ml INJECTION INJ ONE ×2 (16:16→16:19)
[2017-02-03] MEDS ORDERED: LIDOCAINE 1% (10mg/ml) 30ml SDV INJ INJ ONE ×2 (16:30)
[2017-02-03] MEDS: CITALOPRAM 20 MG TABLET PO SCH ×2 (19:57→21:15)
[2017-02-03] MEDS: QUETIAPINE 50 MG TABLET PO SCH ×2 (19:58→21:15)
[2017-02-03] MEDS: RANITIDINE 150 MG TABLET PO SCH ×2 (19:58→21:15)
--- NOTE | 2017-02-03 21:13 | Orthopedic Consult Note ---
Orthopedic Consultation HPI - Consultation Info Consult Date: 02/03/17 Attending Physician: Manhoar Butt MD Consult Reason: joint pain - HPI Elements bilateral knee Pain: throbbing Onset: gradual Severity: moderate Duration: several months How Often Does Pain Occur: constant Previous Surgery: No Previous Injury: No Aggrevated by: standing Associated Symptoms: swelling Treatments Tried: rest, intra-articlar injection, corticosteroid injections ( last injections in October helped for several weeks) X-ray Findings: Other (osteoarthritis) Recommendation: other (repeat corticosteroid injections) Review of Systems - Constitutional Constitutional: Absent: chills, fever(s), night sweats - Cardiovascular Cardiovascular: Absent: chest pain, palpitations - Respiratory Respiratory: Absent: cough, dyspnea - Gastrointestinal Gastrointestinal: Absent: abdominal pain, nausea, vomiting - Musculoskeletal Musculoskeletal: Present: arthralgias - Integumentary/Breasts Integumentary: Absent: lesions, rash PFSH Patient Stated Medical History Transient Ischemic Attacks ( Yes TIA) Angina Yes Coronary Artery Disease Yes Hypertension Yes Myocardial Infarction Yes Gastroesophageal Reflux Yes Disease Ulcer Yes: 3-STOMACH 1-SMALL INTESTINE Clostridium Difficile Yes Depression Yes Clinic Medical History (Last Updated 02/03/17 @ 11:12 by Manohar Butt MD) Heart attack (Acute Medical) Coronary artery disease (Chronic Medical) HTN (hypertension) (Chronic Medical) Peripheral arterial disease (Chronic Medical) Medical History Updates: Peripheral arterial disease. HTN (hypertension). History of Heart attack. Coronary artery disease. Depression. History of C. Diff. PUD. GERD. History of TIA. A-fib. Osteoarthritis. Surgical History: L4-L5 laminectomy with synovial cyst removal-01/29/17- (Dr. Keller). CABG-2011 with stent placement (Dr Sharpe). Pacemaker- 2011. Carotid endarterectomy-2015- (Dr Mccoy). Bilateral lower extremity stenting ( lower ext and Iliac) ballooning-2010,2012- (Dr Gabriel). Colonoscopy-2013. EGD -2011. Cardiac catheter-2011. Carpal tunnel repair-Dr. Cai. L2-L3 microdisectomy. Family History: Family History (Last Reviewed 01/11/17 @ 10:38 by Nena Watts Ilir) Mother Arthritis Father HTN (hypertension) Heart attack - Social History Does patient use chewing tobacco?: No Current residence: Apartment/Private Home Medications Home Medications Medication Instructions Recorded Confirmed Type Quetiapine Fumarate [Seroquel] 50 mg PO HS #0 08/04/11 02/01/17 History Pantoprazole Sodium 40 mg PO DAILY #0 11/27/11 02/01/17 History Nitroglycerin 0.4 mg SL Q5M PRN #0 01/12/12 02/01/17 History Amlodipine Besylate 10 mg PO DAILY #0 11/28/12 02/01/17 History Citalopram Hydrobromide 20 mg PO HS #0 11/28/12 02/01/17 History [Citalopram HBr] Cyanocobalamin (Vitamin B-12) 1,000 mcg PO DAILY #30 tab 07/14/16 02/01/17 History [Vitamin B-12] Minoxidil 5 mg PO BID #0 11/04/16 02/01/17 History raNITIdine HCl [Zantac] 150 mg PO HS #0 tab 11/04/16 02/01/17 History Albuterol Inhaler [Ventolin Hfa] 2 puff ORAL INH BID 01/02/17 02/01/17 History metoprolol tartrate 25 mg tablet 25 mg PO BID tab 01/11/17 02/01/17 History Cyclobenzaprine [Flexeril] 10 mg PO Q8H PRN 01/31/17 02/01/17 History Docusate Sodium [Colace] 1 cap PO DAILY PRN 01/31/17 02/01/17 History Hydromorphone [Dilaudid] 2 mg PO Q6H PRN 01/31/17 02/01/17 History Lactobacillus Acidophilus 2 cap PO DAILY 01/31/17 02/01/17 History [Probiotic] Allergies Allergy/AdvReac Type Severity Reaction Status Date / Time cephalexin Allergy Unknown C DIFF Verified 01/31/17 14:34 labetalol Allergy Unknown Verified 01/31/17 14:34 nitrofurantoin AdvReac Intermediate NAUSEA Verified 01/31/17 14:34 aliskiren [From Tekturna] AdvReac Mild Cramping Verified 01/31/17 14:34 of the Muscles amlodipine [From Lotrel] AdvReac Mild achy Verified 01/31/17 14:34 joints, muscle weakness benazepril [From Lotrel] AdvReac Mild achy Verified 01/31/17 14:34 joints, muscle weakness clonidine AdvReac Mild MUSCLE PAIN Verified 01/31/17 14:34 felodipine AdvReac Mild MUSCLE PAIN Verified 01/31/17 14:34 hydrochlorothiazide AdvReac Mild MUSCLE PAIN Verified 01/31/17 14:34 lisinopril AdvReac Mild ACHY Verified 01/31/17 14:34 JOINTS, MUSCLE WEAKNESS tramadol AdvReac Mild not Verified 01/31/17 14:34 effective valsartan AdvReac Mild MUSCLE PAIN Verified 01/31/17 14:34 hydrocodone AdvReac Unknown NOT Verified 01/31/17 14:34 EFFECTIVE indomethacin AdvReac Unknown "STOMACH Verified 01/31/17 14:34 PROBLEMS" morphine AdvReac Unknown BELLIGERENT Verified 01/31/17 14:34 simvastatin AdvReac Unknown MUSCLE Verified 01/31/17 14:34 CRAMPS diphenhydramine HCl Allergy Mild "HAS Uncoded 01/02/17 00:16 OPPOSITE EFFECT" aliskiren hemifumarate AdvReac Mild MUSCLE PAIN Uncoded 01/02/17 00:16 benazepril HCl AdvReac Mild MUSCLE PAIN Uncoded 01/02/17 00:16 diltiazem HCl AdvReac Mild MUSCLE PAIN Uncoded 01/02/17 00:09 olmesartan medoxomil AdvReac Mild MUSCLE PAIN Uncoded 01/02/17 00:16 varenicline tartrate AdvReac Unknown "WENT Uncoded 01/02/17 00:16 CRAZY" Orthopedic Exam Vital signs: Temperature 97.5 F 02/03/17 16:00 Pulse Rate 68 02/03/17 19:55 Respiratory Rate 18 02/03/17 16:00 Blood Pressure 132/69 02/03/17 16:00 Pulse Oximetry 92 02/03/17 16:00 Oxygen Delivery Method Room Air - Constitutional General Appearance: Present: no acute distress, well developed, well nourished - Respiratory Exam Present: non-labored - Cardiovascular Exam Present: pedal pulses intact - Extremities Exam Present: no edema - Knee Exam right Knee Exam: Present: tender along joint line, Varus deformity, stable to ligament exam, effusion, painful ROM left Knee Exam: Present: tender along joint line, Varus deformity, stable to ligament exam, painful ROM - Integumentary Exam Present: pink, warm, dry - Neurological Exam Present: intact to light touch, no deficits - Psychiatric Exam Present: alert, normal affect - Labs Result Diagrams: 02/02/17 03:54 02/02/17 03:54 H & H 02/02/17 Range/Units 03:54 Hgb 13.1 L (13.5-17.5) GM/DL Hct 39.9 L (41-53) % Impression and Recommendation (1) Bilateral primary osteoarthritis of knee Current visit: Yes Status: Chronic He has done well with previous injections. The pain now is limiting his ability to rehab from his back surgery. I recommended bilateral knee steroid injections. He agreed. Follow up as needed. Hospital Course Summary Disclaimer: The visit summary below is not to be considered part of the above Progress Note. Hospital Course: 02/02/17 14:35 -Back Pain s/p L4-5 Laminectomy with acute neuropathy and debility: .Agree with admission to IRU under the care of Dr. Butt and team. Pain control per Dr. Butt. .Encourage participation in therapies to maximize strength and functional ability. .Continue Flexeril and dilaudid as needed for pain. .Encourage incentive spironmetry for pulmonary toileting. .Continue bowel motivation with dulcolax, colace and miralax. .History of C. diff. Continue culturelle and monitor closely. .Patient reports home albuterol but denies any known lung issues including COPD. During recent hospitalization, patient noted to become hypoxic at night and was given O2 as needed. Denies history of home O2 use. Current SAO2 91% on room air. Oxygen as needed, weaning as able. Consider nocturnal and ambulatory oximetry. .Will monitor labs periodically throughout admission. -A-fib, chronic, with history of TIA: .Continue betapace. Monitor vital signs closely. .SCDs for DVT prophalyxis. .Patient's ASA has been on hold since his surgery. He states that he is scheduled to resume his ASA 325mg daily on 02/05. -Hypertension with CAD and PAD: .Continue home Norvasc and Lopressor. Monitor blood pressure closely. -Osteoarthritis: -GERD with history of PUD: .Continue Protonix and Zantac for GI protection and GERD. -Depression: .Continue home Celexa, B12 and Seroquel. Monitor closely for signs of worsening depression. Upon discharge, patient's care to be returned to his PCP. Orthopedic Procedures - Joint Aspiration/Injection Joint Aspiration/Injection 1 Side of body: left Joint aspirated: knee Ultrasound guidance: No Skin prep: Chlorhexidine Local anesthesia used: bupivacaine 0.25% Amount of anesthesia used (mL): 4 Needle size used: 22G Medication injected, if any: other (80 mg of kenalog) Amount of medication injected (mL): 80 Patient tolerated procedure: well Complications: none Joint Aspiration/Injection 2 Side of body: right Joint aspirated: knee Skin prep: Chlorhexidine Local anesthesia used: bupivacaine 0.25% Amount of anesthesia used (mL): 4 Needle size used: 22G Medication injected, if any: other (kenalog) Amount of medication injected (mL): 80 Patient tolerated procedure: well Complications: none
[2017-02-04] MEDS: PANTOPRAZOLE 40 MG TABLET PO SCH (06:24)
[2017-02-04] MEDS: SOTALOL 80 MG TABLET PO SCH ×2 (06:24→20:32)
[2017-02-04] MEDS: MINOXIDIL 2.5 MG TABLET PO SCH ×2 (08:26→20:31)
[2017-02-04] MEDS: AMLODIPINE 10 MG TABLET PO SCH (08:26)
[2017-02-04] MEDS: CYANOCOBALAMIN (B-12) 500mcg TABLET PO SCH (08:26)
[2017-02-04] MEDS: LACTOBACILLUS (15B cfu) CAPSULE PO SCH (08:26)
[2017-02-04] MEDS: Bisacodyl EC TAB 5 MG TABLET PO SCH ×2 (08:26→20:31)
[2017-02-04] MEDS: POLYETHYL GLYCOL 3350 17gm PACKET PO SCH ×2 (08:27→20:31)
--- NOTE | 2017-02-04 11:47 | IRU Progress Note ---
- Subjective/Serverity of Illness Mr. Simons states that he feels 100% better since he had bilateral knees injected yesterday by Dr. Jo. He is able to ambulate better. Still has some impulsive issues per her therapy. They're working on safety and endurance. He would like to go home as soon as possible. Discussed the case in detail with his who is in the room today separate from the patient. She believes he is improving as well. Exam Vital Signs: Temperature 97.7 F 02/04/17 08:00 Pulse Rate 66 02/04/17 08:00 Respiratory Rate 18 02/04/17 08:00 Blood Pressure 130/69 02/04/17 08:00 Pulse Oximetry 94 02/04/17 08:00 Oxygen Delivery Method Room Air Height: 1.85 m Weight: 109 kg Body Mass Index: 31.6 - Constitutional Present: no acute distress, obese - Routine HEENT Exam Head: Present: normocephalic Eye: Present: EOMI ENT: Present: mucous membranes moist - Routine Neck Exam Present: supple - Routine Respiratory Exam Present: decreased breath sounds. Absent: dyspnea - Routine Cardiovascular Exam Present: RRR, S1, S2, no murmur - Routine Abdominal Exam Present: non distended - Routine Extremities Exam Present: no edema Sepsis Assessment - Evaluation Sepsis screening result: No Definite Risk IRU A/P (1) Back pain Qualifiers: Back pain location: low back pain Chronicity: chronic Back pain laterality: midline Sciatica presence: with sciatica Sciatica laterality: sciatica of right side Qualified Code(s): M54.41 - Lumbago with sciatica, right side; G89.29 - Other chronic pain Current visit: No Status: Acute Patient says his back pain has definitely improved. He is working well with therapy. Continues to have impulsive issues and safety concerns. We will continue working with him over the weekend and anticipate dismissal on February 08. (2) S/P laminectomy Current visit: No Status: Acute No evidence of wound infection. He is healing up well. (3) Coronary artery disease Qualifiers: Coronary Disease-Associated Artery/Lesion type: bypass graft [place] vs. transplanted heart: [place] heart Associated angina: without angina Qualified Code(s): I25.810 - Atherosclerosis of coronary artery bypass graft(s) without angina pectoris Current visit: No Status: Chronic (4) HTN (hypertension) Qualifiers: Hypertension type: essential hypertension Qualified Code(s): I10 - Essential (primary) hypertension Current visit: No Status: Chronic Blood pressure is reviewed and appears to be doing well. (5) Debility Current visit: Yes Status: Acute (6) Neuropathy, idiopathic Current visit: No Status: Resolved He says that his previous numbness etc. has resolved. 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 He is improving. Safety issues remain and we will continue working with him with therapy. DVT Prophylaxis: SCD's Resuscitation Status: Do Not Resuscitate - Course Hospital Course: Manohar Butt MD: 02/02/17 11:26 Patient was initially seen in the department, admitted as outpatient observation and is now on the rehabilitation unit. He is getting started with physical therapy and occupational therapy and seems to be motivated. - Interventions to Obtain Goals PT Treatment Plan: Balance/Proprioception, Functional Activities, Gait Training , Patient/Family Education, Therapeutic Exercise OT Treatment Plan: ADL (Basic Care), Balance Training, Pt./Family Education, Ther. Exercise for ADL
--- NOTE | 2017-02-04 12:18 | IRU Plan of Care ---
[facility] Overall Plan of Care - Date Date: 02/04/17 - Patient Impairments (1) Bilateral primary osteoarthritis of knee Code(s): M17.0 - Bilateral primary osteoarthritis of knee Status: Chronic Classification: Present on IRF Admission, IRF Tx That Should Address Diagnosis, Diagnosis Requiring Medical Follow Up (2) Myopathy Code(s): G72.9 - Myopathy, unspecified Status: Acute Classification: Present on IRF Admission, IRF Tx That Should Address Diagnosis (3) S/P laminectomy Code(s): Z98.890 - Other specified postprocedural states Status: Acute Classification: Present on IRF Admission, IRF Tx That Should Address Diagnosis - Relevant Changes Relevant Changes: No Reviewed: I have reviewed the patient's information and concur with the finding and results of the pre-admission screen. Certification: I certify the patient for rehabilitation. - Medical Prognosis Medical Prognosis: Good Vital Signs: Last Vital Signs Temp 97.7 F 02/04/17 08:00 Pulse 66 02/04/17 08:00 Resp 18 02/04/17 08:00 BP 130/69 02/04/17 08:00 Pulse Ox 94 02/04/17 08:00 - Anticipated Interventions Anticipated Interventions: The patient requires inpatient IRF care for PT, OT, and/or ST for residuals remaining from [L4-5 laminectomy with synovial cyst removal] resulting in muscular weakness and strength deficits. - FIM Ambulation Distance: 172 Toileting Adaptive Equipment: Grab Bars Number of Continent Voids: 2 - Current Functional Status Failed Alternative Therapy: Yes (patient was at home after his back surgery but fell and had significant weakness. He was cared for by home health.) Patient Requires: The patient requires oversight by rehabilitation physician to manage their rehabilitation treatment plan and multidisciplinary approach to care that can only be provided in an IRF and requires a multidisciplinary approach to care, provided by professional PTs, OTs, STs, dieticians, RTs, rehabilitation nurses and is not available in lesser levels of care. Physical Therapy Minutes: 90 Occupational Therapy Minutes: 90 Therapy: The patient is to receive therapy at least 5 days a week. - Anticipated LOS/Outcomes Anticipated Functional Outcome: It is anticipated the patient will be able to return home to independent functioning. Anticipated Length of Stay: 7 (Reassess in one week.) Anticipated DC Destination: Home, Self Care, Home Health Service (Uncertain acceptance of home health.) Home Safety Plan: The patient will be provided with the development of a Home Safety Plan for return to a home or home-like environment and and to ensure safety post discharge. - Plan to Avoid Complications Barriers to Attaining Goals: Weakness, Endurance, Pain Control Plan to Avoid Complications: The patient cannot receive this care in a lesser intensive setting such as Half-Way or Outpatient Therapy due to the patient requiring the following underlying COPD, ASHD and other medical problems. He requires a coronary did medically supervised approach to prevent readmission and to allow the patient to return home to independent functioning..
[2017-02-04] MEDS: HYDROMORPHONE 2 MG TABLET PO PRN (14:40)
[2017-02-04] MEDS: RANITIDINE 150 MG TABLET PO SCH (20:31)
[2017-02-04] MEDS: CITALOPRAM 20 MG TABLET PO SCH (20:32)
[2017-02-04] MEDS: QUETIAPINE 50 MG TABLET PO SCH (20:32)
[2017-02-05] MEDS: RANITIDINE 150 MG TABLET PO SCH ×2 (00:49→20:30)
[2017-02-05] MEDS: QUETIAPINE 50 MG TABLET PO SCH ×2 (00:49→20:30)
[2017-02-05] MEDS: CITALOPRAM 20 MG TABLET PO SCH ×2 (00:49→20:29)
[2017-02-05] MEDS: SOTALOL 80 MG TABLET PO SCH ×2 (06:15→20:27)
[2017-02-05] MEDS: PANTOPRAZOLE 40 MG TABLET PO SCH (06:16)
[2017-02-05] MEDS: LACTOBACILLUS (15B cfu) CAPSULE PO SCH (08:42)
[2017-02-05] MEDS: MINOXIDIL 2.5 MG TABLET PO SCH ×2 (08:42→20:29)
[2017-02-05] MEDS: Bisacodyl EC TAB 5 MG TABLET PO SCH ×2 (08:43→20:28)
[2017-02-05] MEDS: AMLODIPINE 10 MG TABLET PO SCH (08:44)
[2017-02-05] MEDS: CYANOCOBALAMIN (B-12) 500mcg TABLET PO SCH (08:46)
[2017-02-05] MEDS: POLYETHYL GLYCOL 3350 17gm PACKET PO SCH ×2 (08:47→20:19)
--- NOTE | 2017-02-05 10:55 | IRU Progress Note ---
- Subjective/Serverity of Illness Mr. Carpenter continues to demonstrate improvement. We would like to continue working with him and plan to let him go on Wednesday if he is stable clinically. His knee pain is markedly improved after aspiration and injection by orthopedics. We appreciate this. He does have underlying vascular disease including peripheral vascular disease, carotid artery disease and coronary disease. In addition he does have COPD. He specifically denies any chest pain or shortness of breath or cough or sputum at the present time. He is improving. Exam Vital Signs: Temperature 97.8 F 02/05/17 08:00 Pulse Rate 62 02/05/17 08:00 Respiratory Rate 16 02/05/17 08:00 Blood Pressure 154/78 H 02/05/17 08:00 Pulse Oximetry 93 02/05/17 08:00 Oxygen Delivery Method Room Air Height: 1.85 m Weight: 109 kg Body Mass Index: 31.6 - Constitutional Present: no acute distress - Routine HEENT Exam Head: Present: normocephalic Eye: Present: EOMI ENT: Present: mucous membranes moist - Routine Neck Exam Present: supple - Routine Respiratory Exam Present: decreased breath sounds, CTA bilaterally - Routine Cardiovascular Exam Present: RRR, S1, S2, no murmur - Routine Abdominal Exam Present: soft, normoactive bowel sounds, non distended, non tender - Routine Extremities Exam Present: no edema - Routine Neurological Exam Present: alert, oriented X3 - Routine Psychiatric Exam Present: normal affect, normal thought process Sepsis Assessment - Evaluation Sepsis screening result: No Definite Risk IRU A/P (1) Bilateral primary osteoarthritis of knee Current visit: Yes Status: Chronic Knee pain much improved after steroid injection by orthopedics. He is able to tolerate therapy much better and is improving. (2) Myopathy Current visit: Yes Status: Acute Continues to demonstrate some degree myopathy. He is improving with regard to strength and transfers etc. (3) S/P laminectomy Current visit: No Status: Acute Reports that his back pain is controlled adequately at the present time. (4) HTN (hypertension) Qualifiers: Hypertension type: essential hypertension Qualified Code(s): I10 - Essential (primary) hypertension Current visit: No Status: Chronic Blood pressures are monitored and seemed to be doing well. (5) ASHD (arteriosclerotic heart disease) Current visit: Yes Status: Chronic Patient has history of heart disease. He denies any chest pains. Thus far he is tolerating therapy well. DVT Prophylaxis: SCD's Resuscitation Status: Do Not Resuscitate - Course Hospital Course: Manohar Butt MD: 02/02/17 11:26 Patient was initially seen in the department, admitted as outpatient observation and is now on the rehabilitation unit. He is getting started with physical therapy and occupational therapy and seems to be motivated. 02/05/17 10:55 Recent injection by orthopedics as individually helped his bilateral knee pain and has improved his ability to do therapy He denies any chest pain or shortness of breath at present Plan to continue working with him and dismissed in 3 or 4 days. - Interventions to Obtain Goals PT Treatment Plan: Balance/Proprioception, Functional Activities, Gait Training , Patient/Family Education, Therapeutic Exercise OT Treatment Plan: ADL (Basic Care), Balance Training, Pt./Family Education, Ther. Exercise for ADL
--- NOTE | 2017-02-05 16:32 | Progress Note ---
<Pearl Mosley - Last Filed: 02/05/17 18:34> Subjective: Mr. Carpenter is seen in follow up today. He reports he is doing well with the exception of right knee pain and swelling. He had bilateral knee injections on 02/03/17 and states ortho is scheduled to return today to aspirate fluid from the right knee as it continues to be painful and swelling is increasing. He is doing well in regard to his back pain. Objective Vital signs: Temperature 97.8 F 02/05/17 08:00 Pulse Rate 62 02/05/17 08:00 Respiratory Rate 16 02/05/17 08:00 Blood Pressure 154/78 H 02/05/17 08:00 Pulse Oximetry 93 02/05/17 08:00 Oxygen Delivery Method Room Air Body Mass Index: 31.6 - Constitutional Present: no acute distress, well nourished, well developed - Routine HEENT Exam Eye: Present: EOMI ENT: Present: mucous membranes moist, dentition normal - Routine Respiratory Exam Present: CTA bilaterally. Absent: wheezes - Routine Cardiovascular Exam Present: RRR. Absent: murmur - Routine Abdominal Exam Present: soft, normoactive bowel sounds, non distended. Absent: tenderness - Routine Extremities Exam Present: no edema, normal capillary refill - Routine Musculoskeletal Exam Musculoskeletal: Present: joint swelling (moderate swelling to R knee. Diffuse tenderness. No erythema. ) - Routine Skin Exam Present: dry, warm - Routine Neurological Exam Present: alert, oriented X3, CN II-XII intact - Routine Lymphatic Exam Lymphatic: Absent: adenopathy - Routine Psychiatric Exam Present: normal affect Results - Labs CBC & Chem 7: 02/02/17 03:54 02/02/17 03:54 Assessment and Plan (1) Coronary artery disease Current visit: No Status: Chronic (2) HTN (hypertension) Current visit: No Status: Chronic (3) S/P laminectomy Current visit: No Status: Acute (4) Peripheral arterial disease Current visit: No Status: Chronic (5) A-fib Current visit: No Status: Chronic (6) OA (osteoarthritis) of knee Current visit: No Status: Chronic (7) GERD (gastroesophageal reflux disease) Current visit: No Status: Chronic (8) Depression Current visit: Yes Status: Chronic (9) Knee pain, bilateral Current visit: Yes Status: Acute Assessment and Plan: -Right knee pain with effusion-ortho will see patient today for knee aspiration. -Back Pain s/p L4-5 Laminectomy with acute neuropathy and debility: .Continue participation in therapies to maximize strength and functional ability. .Continue bowel motivation with dulcolax, colace and miralax. He reports normal BM's. .Will monitor labs periodically throughout admission. -A-fib, chronic, with history of TIA: .Continue betapace. Monitor vital signs closely. .SCDs for DVT prophalyxis. .Patient's ASA has been on hold since his surgery. Will resume his ASA 325mg daily today. -Hypertension with CAD and PAD: .Continue home Norvasc and Lopressor. Monitor blood pressure closely. -Osteoarthritis: -GERD with history of PUD: .Continue Protonix and Zantac for GI protection and GERD. -Depression: .Continue home Celexa, B12 and Seroquel. Monitor closely for signs of worsening depression. Upon discharge, patient's care to be returned to his PCP, Dr. Duff. Sepsis Assessment - Evaluation Sepsis screening result: No Definite Risk Hospital Course Summary Disclaimer: The visit summary below is not to be considered part of the above Progress Note. Hospital Course: 02/02/17 14:35 -Back Pain s/p L4-5 Laminectomy with acute neuropathy and debility: .Agree with admission to IRU under the care of Dr. Butt and team. Pain control per Dr. Butt. .Encourage participation in therapies to maximize strength and functional ability. .Continue Flexeril and dilaudid as needed for pain. .Encourage incentive spironmetry for pulmonary toileting. .Continue bowel motivation with dulcolax, colace and miralax. .History of C. diff. Continue culturelle and monitor closely. .Patient reports home albuterol but denies any known lung issues including COPD. During recent hospitalization, patient noted to become hypoxic at night and was given O2 as needed. Denies history of home O2 use. Current SAO2 91% on room air. Oxygen as needed, weaning as able. Consider nocturnal and ambulatory oximetry. .Will monitor labs periodically throughout admission. -A-fib, chronic, with history of TIA: .Continue betapace. Monitor vital signs closely. .SCDs for DVT prophalyxis. .Patient's ASA has been on hold since his surgery. He states that he is scheduled to resume his ASA 325mg daily on 02/05. -Hypertension with CAD and PAD: .Continue home Norvasc and Lopressor. Monitor blood pressure closely. -Osteoarthritis: -GERD with history of PUD: .Continue Protonix and Zantac for GI protection and GERD. -Depression: .Continue home Celexa, B12 and Seroquel. Monitor closely for signs of worsening depression. Upon discharge, patient's care to be returned to his PCP. 02/05/17 -Right knee pain with effusion-ortho will see patient today for knee aspiration. -Back Pain s/p L4-5 Laminectomy with acute neuropathy and debility: .Continue participation in therapies to maximize strength and functional ability. .Continue bowel motivation with dulcolax, colace and miralax. He reports normal BM's. .Will monitor labs periodically throughout admission. -A-fib, chronic, with history of TIA: .Continue betapace. Monitor vital signs closely. .SCDs for DVT prophalyxis. .Patient's ASA has been on hold since his surgery. Will resume his ASA 325mg daily today. -Hypertension with CAD and PAD: .Continue home Norvasc and Lopressor. Monitor blood pressure closely. -Osteoarthritis: -GERD with history of PUD: .Continue Protonix and Zantac for GI protection and GERD. -Depression: .Continue home Celexa, B12 and Seroquel. Monitor closely for signs of worsening depression. Upon discharge, patient's care to be returned to his PCP, Dr. Duff. <Jailene Zavala - Last Filed: 02/05/17 19:35> Objective Vital signs: Temperature 98.1 F 02/05/17 16:00 Pulse Rate 65 02/05/17 16:00 Respiratory Rate 20 02/05/17 16:00 Blood Pressure 136/70 02/05/17 16:00 Pulse Oximetry 95 02/05/17 16:00 Oxygen Delivery Method Room Air Results - Labs CBC & Chem 7: 02/02/17 03:54 02/02/17 03:54 Assessment and Plan (1) Coronary artery disease Current visit: No Status: Chronic (2) HTN (hypertension) Current visit: No Status: Chronic (3) Peripheral arterial disease Current visit: No Status: Chronic (4) S/P laminectomy Current visit: No Status: Acute (5) A-fib Current visit: No Status: Chronic (6) OA (osteoarthritis) of knee Current visit: No Status: Chronic (7) GERD (gastroesophageal reflux disease) Current visit: No Status: Chronic (8) Depression Current visit: Yes Status: Chronic (9) Knee pain, bilateral Current visit: Yes Status: Acute Assessment and Plan: I have independently evaluated and examined this patient. I reviewed the chart, the patient's history, and the MAMMALOGY TEACHER/PA's documented findings as above. We discussed and formulated the assessment and plan as above with additions as below: Doing well, denies significant back discomfort. Ambulation limited primarily by knee pain which is better than it was prior to knee injections. Respirations nonlabored, good airflow, breath sounds clear. Abdomen soft, nontender. Sensation intact bilateral lower extremities. Continue current care. Hospital Course Summary Disclaimer: The visit summary below is not to be considered part of the above Progress Note.
[2017-02-05] MEDS: ASPIRIN, BUFFERED 325 MG TABLET PO SCH (17:48)
[2017-02-05] MEDS ORDERED: FALL RISK - PHARMACY CONSULT MC PRN (19:29)
[2017-02-06] MEDS: CITALOPRAM 20 MG TABLET PO SCH ×2 (02:53→22:03)
[2017-02-06] MEDS: QUETIAPINE 50 MG TABLET PO SCH ×2 (02:54→22:03)
[2017-02-06] MEDS: RANITIDINE 150 MG TABLET PO SCH ×2 (02:54→22:03)
[2017-02-06] MEDS: SOTALOL 80 MG TABLET PO SCH ×2 (06:13→22:00)
[2017-02-06] MEDS: PANTOPRAZOLE 40 MG TABLET PO SCH (06:14)
[2017-02-06] MEDS: LACTOBACILLUS (15B cfu) CAPSULE PO SCH (08:34)
[2017-02-06] MEDS: MINOXIDIL 2.5 MG TABLET PO SCH ×2 (08:34→22:02)
[2017-02-06] MEDS: POLYETHYL GLYCOL 3350 17gm PACKET PO SCH ×2 (08:35→22:02)
[2017-02-06] MEDS: AMLODIPINE 10 MG TABLET PO SCH (08:35)
[2017-02-06] MEDS: CYANOCOBALAMIN (B-12) 500mcg TABLET PO SCH (08:35)
[2017-02-06] MEDS: Bisacodyl EC TAB 5 MG TABLET PO SCH ×2 (08:35→22:02)
[2017-02-06] MEDS: ASPIRIN, BUFFERED 325 MG TABLET PO SCH (08:37)
[2017-02-07] MEDS: SOTALOL 80 MG TABLET PO SCH ×2 (05:48→20:35)
[2017-02-07] MEDS: PANTOPRAZOLE 40 MG TABLET PO SCH (05:48)
[2017-02-07] MEDS: ASPIRIN, BUFFERED 325 MG TABLET PO SCH (09:00)
[2017-02-07] MEDS: LACTOBACILLUS (15B cfu) CAPSULE PO SCH (09:01)
[2017-02-07] MEDS: Bisacodyl EC TAB 5 MG TABLET PO SCH ×2 (09:01→22:29)
[2017-02-07] MEDS: POLYETHYL GLYCOL 3350 17gm PACKET PO SCH ×2 (09:01→22:30)
[2017-02-07] MEDS: MINOXIDIL 2.5 MG TABLET PO SCH ×2 (09:01→22:28)
[2017-02-07] MEDS: CYANOCOBALAMIN (B-12) 500mcg TABLET PO SCH (09:02)
[2017-02-07] MEDS: AMLODIPINE 10 MG TABLET PO SCH (09:02)
[2017-02-07] MEDS ORDERED: FALL RISK - PHARMACY CONSULT XX ONE (15:02)
[2017-02-07] MEDS: QUETIAPINE 50 MG TABLET PO SCH (22:29)
[2017-02-07] MEDS: RANITIDINE 150 MG TABLET PO SCH (22:29)
[2017-02-07] MEDS: CITALOPRAM 20 MG TABLET PO SCH (22:29)
[2017-02-08] MEDS: SOTALOL 80 MG TABLET PO SCH (05:45)
[2017-02-08] MEDS: PANTOPRAZOLE 40 MG TABLET PO SCH (05:45)
[2017-02-08 08:36] VITALS: BP 157/85; PULSE 66; RESP 20; TEMP 97; O2SAT 97
[2017-02-08] MEDS: CYANOCOBALAMIN (B-12) 500mcg TABLET PO SCH (09:56)
[2017-02-08] MEDS: LACTOBACILLUS (15B cfu) CAPSULE PO SCH (09:56)
--- NOTE | 2017-02-08 09:56 | IRU Progress Note ---
- Subjective/Serverity of Illness Patient was evaluated in his room. He is doing much better. He is able to ambulate and transfer safely. He continues to have discomfort particularly in the right knee. Both knees were injected last week. He believes that someone told him that the right knee would be aspirated today. I did speak with Jesus with Dr. Jo's office and he will check into that and let us know. From a medical standpoint he seems to be stable. He denies any chest pain. Denies current dyspnea or cough. Exam Vital Signs: Temperature 97 F 02/08/17 08:25 Pulse Rate 66 02/08/17 08:25 Respiratory Rate 20 02/08/17 08:25 Blood Pressure 157/85 H 02/08/17 08:25 Pulse Oximetry 97 02/08/17 08:25 Oxygen Delivery Method Room Air Height: 1.85 m Weight: 106 kg Body Mass Index: 31.6 - Constitutional Present: no acute distress - Routine HEENT Exam Head: Present: normocephalic Eye: Present: EOMI ENT: Present: mucous membranes moist - Routine Neck Exam Present: supple - Routine Respiratory Exam Present: decreased breath sounds - Routine Cardiovascular Exam Present: RRR - Routine Abdominal Exam Present: soft, normoactive bowel sounds, non distended, non tender - Routine Extremities Exam Absent: cyanosis, edema - Routine Skin Exam Present: dry - Routine Neurological Exam Present: alert, oriented X3 - Routine Psychiatric Exam Present: normal affect, normal thought process Sepsis Assessment - Evaluation Sepsis screening result: No Definite Risk IRU A/P (1) Bilateral primary osteoarthritis of knee Current visit: Yes Status: Chronic I have discussed his case with Jesus with Dr. Jo. He will check with and let us know. Patient believes that the right knee needs to be aspirated. Both knees were injected last week. Overall he is doing much better. He would actually prefer not to do physical therapy as an outpatient. 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 He is able to ambulate. He is able to transfer. (3) S/P laminectomy Current visit: No Status: Acute We'll check with Dr. Keller's office who indicates that they would prefer he not do outpatient physical therapy until the end of February. Has appointment at that time. His back seems to be doing quite well. (4) HTN (hypertension) Qualifiers: Hypertension type: essential hypertension Qualified Code(s): I10 - Essential (primary) hypertension Current visit: No Status: Chronic Blood pressures seem to be stable. At times he is running slightly high at about 150. Denies any lightheadedness. (5) ASHD (arteriosclerotic heart disease) Current visit: Yes Status: Chronic Continues to deny any chest pain. He denies dyspnea as well. DVT Prophylaxis: SCD's Resuscitation Status: Do Not Resuscitate - Course Hospital Course: Manohar Butt MD: 02/02/17 11:26 Patient was initially seen in the department, admitted as outpatient observation and is now on the rehabilitation unit. He is getting started with physical therapy and occupational therapy and seems to be motivated. 02/05/17 10:55 Recent injection by orthopedics as individually helped his bilateral knee pain and has improved his ability to do therapy He denies any chest pain or shortness of breath at present Plan to continue working with him and dismissed in 3 or 4 days. 02/08/17 09:56 He has done well with therapy. In particular, after the knees were injected he did much better. He would actually prefer not to do physical therapy as nonpatient We plan to dismiss him today to his home. I believe he is safe for this. I have checked with Jesus, was Dr. Jo and he will check to see if the knee needs to be aspirated or not. - Interventions to Obtain Goals PT Treatment Plan: Balance/Proprioception, Functional Activities, Gait Training , Patient/Family Education, Therapeutic Exercise OT Treatment Plan: ADL (Basic Care), Balance Training, Pt./Family Education, Ther. Exercise for ADL
[2017-02-08] MEDS: MINOXIDIL 2.5 MG TABLET PO SCH (09:57)
[2017-02-08] MEDS: ASPIRIN, BUFFERED 325 MG TABLET PO SCH (09:57)
[2017-02-08] MEDS: AMLODIPINE 10 MG TABLET PO SCH (09:58)
[2017-02-08] MEDS: Bisacodyl EC TAB 5 MG TABLET PO SCH (09:59)
[2017-02-08] MEDS: POLYETHYL GLYCOL 3350 17gm PACKET PO SCH (09:59)
--- NOTE | 2017-02-08 10:05 | Discharge Instructions ---
Discharge Plan - Med Rec/Dispo Referrals/Follow Up: [facility] [Provider Group] (Outpatient Therapy on 02/09/17 at 9:00 am. . [facility] [place] [address]) Kim Duff MD [Family Provider] - (Dr. Dunia Duff on 02/23/17 at 3:15 pm for Hosp. follow-up. [address] [place] [address]) Prescriptions: No Action Citalopram Hydrobromide [Citalopram HBr] 20 mg PO HS #0 raNITIdine HCl [Zantac] 150 mg PO HS #0 tab Minoxidil 5 mg PO BID #0 Albuterol Inhaler [Ventolin Hfa] 2 puff ORAL INH BID Docusate Sodium [Colace] 1 cap PO DAILY PRN PRN Reason: Constipation /Stool Softening Lactobacillus Acidophilus [Probiotic] 2 cap PO DAILY Hydromorphone [Dilaudid] 2 mg PO Q6H PRN PRN Reason: Pain Bisacodyl EC Tab [Dulcolax] 10 mg PO BID tablet PEG 3350 17gm PACKET [Miralax] 17 gm PO BID packet Quetiapine Fumarate [Seroquel] 50 mg PO HS #0 Pantoprazole Sodium 40 mg PO DAILY #0 Nitroglycerin 0.4 mg SL Q5M PRN #0 PRN Reason: Chest Pain Amlodipine Besylate 10 mg PO DAILY #0 Sotalol HCl [Betapace] 40 mg PO BID 30 Days Cyanocobalamin (Vitamin B-12) [Vitamin B-12] 1,000 mcg PO DAILY #30 tab Cyclobenzaprine [Flexeril] 10 mg PO Q8H PRN PRN Reason: Muscle Pain metoprolol tartrate 25 mg tablet 25 mg PO BID tab Discharge Instructions/Outpatient Orders: Final Provider Discharge Instructions Location: Determined By Patient - Disposition 01 Discharged Home, Self-Care
--- NOTE | 2017-02-08 10:12 | Discharge Summary ---
Discharge Information Date of admission: 02/01/17 16:18 Anticipated date of discharge: 02/08/17 Attending Physician: Manohar Butt MD Primary care physician: Kim Duff MD Consults: 02/01/17 17:31 Physician Consult [CONS] Routine Consulting Provider: Gilbert Escobar Reason For Exam: Medical management Ordering Provider has Notified Cyber Analyst: No 02/03/17 14:09 Physician Consult [CONS] Routine Consulting Provider: Donaldo Jo Reason For Exam: knee pain Ordering Provider has Notified Cyber Analyst: Yes Comment: ? injection - Discharge Diagnosis (1) Bilateral primary osteoarthritis of knee Status: Chronic (2) Myopathy Status: Resolved (3) S/P laminectomy Status: Acute (4) HTN (hypertension) Qualifiers: Hypertension type: essential hypertension Qualified Code(s): I10 - Essential (primary) hypertension Status: Chronic (5) ASHD (arteriosclerotic heart disease) Status: Chronic - Laboratory Labs: 02/02/17 03:54 02/02/17 03:54 History of Present Illness HPI: 02/08/17 10:06 Mr. Carpenter was admitted after posterior laminectomy and synovial cyst removal from the lumbar spine area but Dr. Javier Keller. 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 He was felt to be a good candidate for acute rehabilitation. He requires a multidisciplinary approach and intensive individualized plan of care for his problems. He will be seen by PT, OT, nursing and will require medical supervision of these medical issues. It is anticipated that his multiple medical problems will impact his therapy. Hospital Course This is a general summary of the patient's hospital course. For more details refer to the complete medical record. Mr. Carpenter was admitted to the acute rehabilitation unit after laminectomy and synovial cyst removal from his lumbar spine area by Dr. Javier Keller. Has multiple medical problems including hypertension, episodic artery disease, peripheral vascular arterial disease, bilateral knee joint osteoarthritis. The patient was evaluated and treated in a multidisciplinary approach by physical therapy, occupational therapy, nursing, medicine, dietary etc. He did well with therapy. The patient improved during the time of his hospitalization. The main barrier to his improvement was his bilateral knee osteoarthritis. He was seen by Dr. Jo and both knees were injected with steroids. This improved his ambulatory ability considerably. 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 This improved during this hospitalization. Initially he was seen by home health after his surgery. There was concern about the possibility of wound infection etc. However this was felt not to be the case when he was evaluated in the emergency department. At the time of dismissal he is significantly improved and is safe to return home. Dr. Jo or one of his colleagues will see the patient today to consider aspiration of the right knee. We checked with Dr. Keller's office who recommends no outpatient physical therapy until he is seen in the latter portion of February. In addition the patient declines home health. Hospital course: 02/02/17 14:35 -Back Pain s/p L4-5 Laminectomy with acute neuropathy and debility: .Agree with admission to IRU under the care of Dr. Butt and team. Pain control per Dr. Butt. .Encourage participation in therapies to maximize strength and functional ability. .Continue Flexeril and dilaudid as needed for pain. .Encourage incentive spironmetry for pulmonary toileting. .Continue bowel motivation with dulcolax, colace and miralax. .History of C. diff. Continue culturelle and monitor closely. .Patient reports home albuterol but denies any known lung issues including COPD. During recent hospitalization, patient noted to become hypoxic at night and was given O2 as needed. Denies history of home O2 use. Current SAO2 91% on room air. Oxygen as needed, weaning as able. Consider nocturnal and ambulatory oximetry. .Will monitor labs periodically throughout admission. -A-fib, chronic, with history of TIA: .Continue betapace. Monitor vital signs closely. .SCDs for DVT prophalyxis. .Patient's ASA has been on hold since his surgery. He states that he is scheduled to resume his ASA 325mg daily on 02/05. -Hypertension with CAD and PAD: .Continue home Norvasc and Lopressor. Monitor blood pressure closely. -Osteoarthritis: -GERD with history of PUD: .Continue Protonix and Zantac for GI protection and GERD. -Depression: .Continue home Celexa, B12 and Seroquel. Monitor closely for signs of worsening depression. Upon discharge, patient's care to be returned to his PCP. 02/05/17 -Right knee pain with effusion-ortho will see patient today for knee aspiration. -Back Pain s/p L4-5 Laminectomy with acute neuropathy and debility: .Continue participation in therapies to maximize strength and functional ability. .Continue bowel motivation with dulcolax, colace and miralax. He reports normal BM's. .Will monitor labs periodically throughout admission. -A-fib, chronic, with history of TIA: .Continue betapace. Monitor vital signs closely. .SCDs for DVT prophalyxis. .Patient's ASA has been on hold since his surgery. Will resume his ASA 325mg daily today. -Hypertension with CAD and PAD: .Continue home Norvasc and Lopressor. Monitor blood pressure closely. -Osteoarthritis: -GERD with history of PUD: .Continue Protonix and Zantac for GI protection and GERD. -Depression: .Continue home Celexa, B12 and Seroquel. Monitor closely for signs of worsening depression. Upon discharge, patient's care to be returned to his PCP, Dr. Duff. Time spent with patient: 25 - 35 minutes (Discussed case with patient and and answered questions.) Discharge Plan - Med Rec/Dispo Referrals/Follow Up: [facility] [Provider Group] (Outpatient Therapy on 02/09/17 at 9:00 am. . [facility] [address]) Kim Duff MD [Family Provider] - (Dr. Dunia Duff on 02/23/17 at 3:15 pm for Hosp. follow-up. [address] [place] [address]) Prescriptions: No Action Citalopram Hydrobromide [Citalopram HBr] 20 mg PO HS #0 raNITIdine HCl [Zantac] 150 mg PO HS #0 tab Minoxidil 5 mg PO BID #0 Albuterol Inhaler [Ventolin Hfa] 2 puff ORAL INH BID Docusate Sodium [Colace] 1 cap PO DAILY PRN PRN Reason: Constipation /Stool Softening Lactobacillus Acidophilus [Probiotic] 2 cap PO DAILY Hydromorphone [Dilaudid] 2 mg PO Q6H PRN PRN Reason: Pain Bisacodyl EC Tab [Dulcolax] 10 mg PO BID tablet PEG 3350 17gm PACKET [Miralax] 17 gm PO BID packet Quetiapine Fumarate [Seroquel] 50 mg PO HS #0 Pantoprazole Sodium 40 mg PO DAILY #0 Nitroglycerin 0.4 mg SL Q5M PRN #0 PRN Reason: Chest Pain Amlodipine Besylate 10 mg PO DAILY #0 Sotalol HCl [Betapace] 40 mg PO BID 30 Days Cyanocobalamin (Vitamin B-12) [Vitamin B-12] 1,000 mcg PO DAILY #30 tab Cyclobenzaprine [Flexeril] 10 mg PO Q8H PRN PRN Reason: Muscle Pain metoprolol tartrate 25 mg tablet 25 mg PO BID tab Discharge Instructions/Outpatient Orders: Final Provider Discharge Instructions Location: Determined By Patient - Disposition 01 Discharged Home, Self-Care
--- NOTE | 2017-02-08 14:55 | Discharge Instructions ---
Discharge Plan - Med Rec/Dispo Referrals/Follow Up: [facility] [Provider Group] () Kim Duff MD [Family Provider] - (Dr. Dunia Duff on 02/23/17 at 3:15 pm for Hosp. follow-up. [address] [place] [address]) Prescriptions: New Bisacodyl EC Tab [Dulcolax] 10 mg PO BID tablet Aspirin, Buffered [Ascriptin] 325 mg PO DAILY tablet Continue Citalopram Hydrobromide [Citalopram HBr] 20 mg PO HS #0 raNITIdine HCl [Zantac] 150 mg PO HS #0 tab Minoxidil 5 mg PO BID #0 Albuterol Inhaler [Ventolin Hfa] 2 puff ORAL INH BID Docusate Sodium [Colace] 1 cap PO DAILY PRN PRN Reason: Constipation /Stool Softening Lactobacillus Acidophilus [Probiotic] 2 cap PO DAILY Bisacodyl EC Tab [Dulcolax] 10 mg PO BID tablet PEG 3350 17gm PACKET [Miralax] 17 gm PO BID packet Quetiapine Fumarate [Seroquel] 50 mg PO HS #0 Pantoprazole Sodium 40 mg PO DAILY #0 Nitroglycerin 0.4 mg SL Q5M PRN #0 PRN Reason: Chest Pain Amlodipine Besylate 10 mg PO DAILY #0 Sotalol HCl [Betapace] 40 mg PO BID 30 Days Cyanocobalamin (Vitamin B-12) [Vitamin B-12] 1,000 mcg PO DAILY #30 tab metoprolol tartrate 25 mg tablet 25 mg PO BID tab Discontinued Hydromorphone [Dilaudid] 2 mg PO Q6H PRN PRN Reason: Pain Cyclobenzaprine [Flexeril] 10 mg PO Q8H PRN PRN Reason: Muscle Pain Discharge Instructions/Outpatient Orders: Final Provider Discharge Instructions Location: Determined By Patient - Disposition 01 Discharged Home, Self-Care
--- NOTE | 2017-02-08 15:33 | Operative Note ---
Orthopedic Procedures - Joint Aspiration/Injection Joint Aspiration/Injection 1 Time out performed: Yes Side of body: right Joint aspirated: knee Ultrasound guidance: No Skin prep: Chlorhexidine Local anesthesia used: lidocaine 1% (10ml) Needle size used: 18G Fluid obtained: clear Total fluid obtained (mL): 46 Patient tolerated procedure: well, no complications Complications: none Additional comments: synovial fluid was clear, no need to send to lab, fluid was thrown away.
== END 2017-02-08 15:55 | disposition home health service (06) | DRG 946 ==
PROVIDERS: ADMIT Internal Medicine; ATTEND Internal Medicine